=== PATIENT | female | born 1930 | race Caucasian/White ===

== ENCOUNTER 2017-08-03 20:19 | Inpatient (IN) | payer MEDICARE ==
[2017-08-03] MEDS ORDERED: Albuterol Sulfate 2.5 mg/0.5 ml Neb ONE ×2 (20:39→20:41)
[2017-08-03] MEDS ORDERED: Oseltamivir 75 MG CAP PO SCH (21:00)
[2017-08-03] MEDS ORDERED: Ondansetron HCl/PF 4 MG/2 ML Vial IVP PRN (22:21)
[2017-08-03] MEDS ORDERED: Acetaminophen 325 MG TAB PO PRN (22:21)
[2017-08-03] MEDS ORDERED: Ondansetron ODT 4 MG TAB SL PRN (22:21)
[2017-08-03 22:52] VITALS: BMI 31.8
[2017-08-03] MEDS ORDERED: Ipratropium Bromide 2.5 ml Neb NEB SCH (23:00)
[2017-08-04] MEDS: Albuterol Sulfate 2.5 mg/0.5 ml Neb NEB SCH ×2 (00:27→02:35)
[2017-08-04] MEDS ORDERED: Dextrose 5% in Water 1,000 ML IV PRN (03:03)
[2017-08-04] MEDS ORDERED: HYDROcodone/Acetaminophen 5/325 mg Tablet PO PRN (03:03)
[2017-08-04] MEDS ORDERED: Ondansetron ODT 4 MG TAB PO PRN (03:03)
[2017-08-04] MEDS ORDERED: Dextrose 50% Abboject 50 ML SYRINGE SLOW IVP PRN (03:03)
[2017-08-04] MEDS ORDERED: Amlodipine 10 MG TAB PO SCH (03:15)
[2017-08-04] MEDS ORDERED: Carvedilol 6.25 MG TAB PO SCH (03:15)
[2017-08-04 04:32] LABS: #Eosinphils 0.1 thou/uL (0.0-0.7); #Lymphocytes 0.3 thou/uL (1.20-3.40); #Monocytes 0.1 thou/uL (0.11-0.59); #Neutrophils 7.5 thou/uL (1.40-6.50); %Basophils 0.1 % (0.0-1.0); %Eosinophils 0.8 % (0.0-10.0); %Lymphocytes 4.2 % (21.0-51.0); %Monocytes 1.1 % (0.0-10.0); %Neutrophils 93.8 % (42.0-75.0); Hemoglobin 10.1 g/dL (12.0-16.0); Mean Corpuscular HGB CONC 32.8 g/dL (32.0-36.0); Mean Corpuscular Hemoglobin 32.6 pg (27.0-31.0); Mean Corpuscular Volume 99.4 fl (81.0-99.0); Mean Platelet Volume 6.7 fL (7.4-10.4); Platelet Count 193 thou/uL (130-400); RBC Distribution Width 15.8 % (11.5-14.5); Red Blood Cell (RBC) Count 3.11 mill/uL (4.20-5.40)
--- NOTE | 2017-08-04 04:34 | HP ---
DATE OF ADMISSION: 08/04/2017 TIME OF SERVICE: 0230. CHIEF COMPLAINT: Fever, shortness of breath. HISTORY OF PRESENT ILLNESS: Ms. Dean is an 87-year-old female who is a resident of the [facility] known as [facility] in [place]. She has had cough and myalgias and temperat ures up to 102. She was sent to the ER, there for evaluation and was found to have a fever, she was flu A positive, labs were otherwise normal. She was found to be shortness of breath with hypoxemic r espiratory failure and an acute exacerbation of COPD. She has been transferred here for further work up and admission. The patient does have end-stage renal disease on hemodialysis, apparently Sunday, , Sunday , apparently missed hemodialysis today. On arrival here, temperature was abnormal with a fever of 100.6. She has been afebrile since then. In the ER there, she was given albuterol nebs, Tamiflu, and transferred here. Here, she was written for Tamiflu 75 b.i.d., Solu-Medrol, and DuoNebs. We were asked to admit. On arrival, the patient is sleepy, but arousable. She appears to be mild to moderate respiratory dis tress. She denies any chest pain, no nausea, vomiting, no diarrhea. No abdominal pain. No GI bleed ing recently. PAST MEDICAL HISTORY: 1. COPD. 2. Hypertension. 3. End-stage renal disease on hemodialysis Sunday, , and Sunday. She follows with Dr. Jorge english. 4. Diabetes mellitus type 2, on long-term Lantus. 5. Coronary artery disease with MO sometime in mid 2014. 6. Osteoporosis. 7. Renal cancer status post nephrectomy. PAST SURGICAL HISTORY: Include hysterectomy. Right nephrectomy. HOME MEDICATIONS: 1. Renvela 800 mg p.o. t.i.d. 2. Lantus 20 units subcu q.a.m. 3. Biotin 1000 mcg daily. 4. Vitamin D 50,000 units p.o. q. Sunday. 5. Pantoprazole 40 mg daily. 6. Escitalopram 10 mg daily. 7. Plavix 75 mg daily. 8. Faith-Malika 0.8 mg daily. 9. Symbicort 1 puff t.i.d. 10. Cetirizine 10 mg daily. 11. Tramadol 50 mg q.4 p.r.n. 12. Zofran ODT 4 mg sublingual p.r.n. nausea. 13. Lactulose 30 g daily. 14. Tessalon Perles 200 mg p.o. t.i.d. p.r.n. cough. 15. DuoNebs 3 mL q.4 hours p.r.n. shortness of breath. 16. Levofloxacin every other day starting 07/28 to 07/31. 17. Tamiflu given this morning 08/03. The patient was apparently on Coreg and amlodipine at some time in the recent past, but has been bloc ked off OCT and stopped in the last several days. FAMILY HISTORY: Negative for clotting or bleeding disorder. SOCIAL HISTORY: No immune dysfunction. Her surrogate decision maker is Pina hinds [phone]. I discussed with the patient, advance directi ves. She does wish to be a FULL CODE. Ms. Hinds to make a decision if she becomes unable. SOCIAL HISTORY: Negative for habits x3. She lives [facility] near [place]. She anticipates returning there upon completion of her treatment. REVIEW OF SYSTEMS: A 10-point review of systems was performed, negative for all other systems except stated as per HPI. PHYSICAL EXAMINATION: VITAL SIGNS: Temperature on arrival here at the ER 100.6, pulse 65, blood pressure 167/69, respirato ry 20, satting 97% on 2 liters nasal cannula. Current vital signs showed blood pressure to be in the 180s/80s. On arrival to the ER in [place], she was 88% on room air. GENERAL: She is sedated, but arousable. She is in mild respiratory distress. She is getting nebuli zer treatment at present. HEENT: Normocephalic, atraumatic. Pupils are equal, reactive bilaterally, she has bilateral arcus s enilis. Mucous membranes are dry. She has no visible lesions. No thrush. NECK: Supple, without lymphadenopathy, JVD, or thyromegaly. She has normal carotid upstrokes. Good range of motion. LUNGS: Have diffuse inspiratory and expiratory wheezes bilaterally. She has no crackles. No rhonch i. She has adequate air movement and symmetrical chest excursion. CARDIOVASCULAR: She has normal cardiac. Normal S1, S2. I cannot appreciate murmurs over breath faraz nds and nebulizer sounds. ABDOMEN: Soft, is nontender, nondistended. She has a ventral hernia in place. It is easily reducib le. She has no rebound, rigidity, or guarding. There are normoactive bowel sounds present in all 4 quadrants. EXTREMITIES: No cyanosis, no clubbing. She has got trace pedal edema. She has 1+ dorsalis pedis an d posterior tibial pulses bilaterally. SKIN: Warm, moist, and well perfused. She has no rash, no lesions. Capillary refill is normal. MUSCULOSKELETAL: Normal to inspection. There are no inflamed joints. No palpable effusions. NEUROLOGIC: She is sedated, but arousable. She is talking much. She is in mild to moderate respira tory distress. She has no focal neurologic deficits. Moving all 4 extremities. Strength is 4-5/5 i n all 4 extremities. LABORATORY DATA: BMP shows sodium 135, potassium 5.1, chloride 102, bicarb 21, BUN 28, creatinine 4. 2, calcium 9.7, glucose 139. CBC showed a white count of 9.4. She has 87% granulocytes, hemoglobin 10.7, hematocrit 31.6, platelets 162,000. Chest x-ray showed no acute cardiopulmonary disease. ASSESSMENT AND PLAN: 1. Acute exacerbation of chronic obstructive pulmonary disease. I think she got Solu-Medrol 125 at the ER. We will continue 40 mg IV q.6 hours for a day or two until she improves, then transition her to oral steroids. We will schedule DuoNebs q.4 hours and q.2 hours albuterol as needed. 2. Acute hypoxic respiratory failure. The patient currently requiring oxygen. Wean as tolerated. Obviously with COPD we do not want oxygen sats to stay too high, so will wean to keep her oxygen sats greater than 90%. 3. Influenza A. Patient was given a 30 mg dose as appropriate for her renal function. She is to ge t 2 more doses after every other dialysis. She was ordered 75 b.i.d., I confirmed with the nurses', it was not given and that order has been stopped abruptly. Dosing has been confirmed for her current renal status. 4. End-stage renal disease on hemodialysis. Dr. Covington has been consulted. The patient needs dialysis that she missed today. 5. Hypertension. Currently uncontrolled. It looks like she was on amlodipine 10 mg daily, and Core g 6.25 b.i.d. We will give her dose of those now, p.r.n. hydralazine has been ordered intravenously. We will resume her regular dosing and monitor her blood pressure. 6. Diabetes mellitus type 2, she is on Lantus daily which will continue. Diabetic renal diet has be en ordered. q.i.d. a.c. and at bedtime Accu-Cheks. We will check hemoglobin A1c in the morning. Sl iding scale insulin with moderate scale has been instituted. I expect her to run high. Currently, s he is on IV steroids. We will try to correct appropriately. 8. History of coronary artery disease, status post MO a year and a half ago. Continue her Plavix. 9. Renal cell carcinoma, apparently in remission.
[2017-08-04 04:57] LABS: Albumin 3.7 g/dL (3.4-4.8); Anion Gap 16 mmol/L (10-20); BUN (Urea Nitrogen) 35 mg/dL (9.8-20.1); BUN/Creatinine Ratio 6.85; Calc. Creatinine Clearance 11 mL/min (70-130); Calcium 9.7 mg/dL (7.8-10.44); Carbon Dioxide 22 mmol/L (23-31); Chloride 101 mmol/L (98-107); Estimated GFR-MDRD 8; Glucose 213 mg/dL (83-110); Phosphorus 4.8 mg/dL (2.3-4.7); Potassium 4.9 mmol/L (3.5-5.1); Sodium 134 mmol/L (136-145)
[2017-08-04] MEDS: HumaLOG 300 UNITS/3 ML VIAL SC PRN ×2 (05:23→11:44)
[2017-08-04] MEDS ORDERED: Non-Formulary Item 1 EACH (Insulin Glargine,Hum.Rec.Anlog 20 UNIT) SQ SCH (09:00)
[2017-08-04] MEDS ORDERED: Ergocalciferol 1.25 MG(50,000 UNITS) CAP PO SCH ×2 (09:00)
[2017-08-04] MEDS: Sevelamer Carbonate 800 MG TAB PO SCH ×3 (09:04→17:32)
[2017-08-04] MEDS: Folic Acid/Vit B Comp W-C PO SCH (09:04)
[2017-08-04] MEDS: Escitalopram Oxalate 10 mg Tablet PO SCH (09:04)
[2017-08-04] MEDS: Clopidogrel Bisulfate 75 MG TAB PO SCH (09:04)
[2017-08-04] MEDS: Insulin Detemir 100 UNITS/ML 20 UNITS in Pre-Filled Syringe 1 EACH SC SCH (09:05)
--- NOTE | 2017-08-04 11:40 | CON ---
DATE OF CONSULTATION: 08/04/2017 RENAL MEDICINE HISTORY OF PRESENT ILLNESS: Ms. Dean is an 87-year-old white female with ESRD - maintenance hemodial ysis and was admitted for fever and shortness of breath. She was found to positive flu A. Shortness of breath was said to be persistent, hence the patient was admitted for further management. Presump tive diagnosis is exacerbation of her COPD. She also missed her Sunday dialysis session. For this r sendy, we are being consulted for her maintenance hemodialysis. I will schedule this patient for ramos lysis today. This morning, she is feeling better and a little less short of breath. REVIEW OF SYSTEMS: Positive for fever. Positive for diarrhea. Positive for shortness of breath. P ositive for nausea, no abdominal pain, no headache, no diplopia, no syncopal episode. Appetite is de creased. Positive for joint pains. No hematochezia, no melena, no hematemesis, no diplopia. Positi ve for sore throat. MEDICATIONS: Tylenol 650 mg p.o. q.4 p.r.n., Ray 5/325 q.6, Plavix 75 mg daily, Drisdol 50,000 mg p.o. every 7 days, Lexapro 10 mg daily, hydralazine 10 mg IV q.4 as needed, insulin detemir 20 units subcu q.a.m., Humalog sliding scale, Solu-Medrol 40 mg IV q.6, Tamiflu 1 tab Sunday, Sunday, y, Protonix 40 mg daily, Renvela 800 mg p.o. t.i.d. PAST MEDICAL HISTORY: 1. ESRD, currently on maintenance hemodialysis; Sunday, Sunday, and Sunday. 2. Type 2 diabetes mellitus. 3. Diabetic nephropathy, hyperlipidemia, coronary artery disease, renal cancer - in remission, depre ssion. PAST SURGICAL HISTORY: 1. Status post right nephrectomy for renal cancer 2. Status post AV fistula placement. 3. Status post cuffed hemodialysis catheter placement. 4. Status post hysterectomy. 5. Status post cardiac catheterization. SOCIAL HISTORY: Patient currently in a fpc in [place], 4 children. 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 Currently no history of smoking, no alcohol, no IV drug abuse. Status post blood transfusion. Education, nursing school. Sedentary lifestyle. ALLERGIES: DEMEROL. TRAUMA: None. IMMUNIZATIONS: Up to date. HOSPITALIZATIONS: Please see past medical history. FAMILY HISTORY: No family history of ESRD. PHYSICAL EXAMINATION: VITAL SIGNS: Blood pressure is 176/85, heart rate 73, respiratory rate 18, temperature 98.1, pulse o x 94%. GENERAL: Awake, alert, supine, lethargic, not in overt distress. SKIN: Adequate turgor. HEENT: Pinkish conjunctivae, anicteric sclerae. NECK: No neck mass, no carotid bruits, no JVD. CHEST: No deformities. LUNGS: Decreased breath sounds. No wheezing. HEART: Normal sinus rhythm. No murmur, no gallops or rubs. ABDOMEN: Globular, soft, nontender. EXTREMITIES: Trace edema. NEUROLOGIC: Awake, oriented to 3 spheres. Moving all extremities. No tremors, no asterixis, no flaco faby. LABORATORY DATA: Laboratories of 08/04/2017; white count 8, hemoglobin 10.1, sodium 134, potassium 4 .9, chloride 101, carbon dioxide 22, BUN 35, creatinine 5.11, glucose is 213, phosphorus 4.8, and alb umin 3.7. ASSESSMENT AND PLAN: 1. End-stage renal disease, stable. We will continue current treatment with hemodialysis. Since th e patient missed her dialysis yesterday, we will do a 3-hour hemodialysis with this patient. Fluid r emoval only as tolerated by the patient. 2. Fever - secondary to influenza A - patient currently on Tamiflu. 3. Shortness of breath - multifactorial. The patient has underlying chronic obstructive pulmonary d isease and is being treated for this. In addition, we will consider dialyzing patient today with flu id removal. Review of the last Kt/V at the dialysis unit suggests she is adequately dialyzed with the current ramos lysis regimen.
--- NOTE | 2017-08-04 12:06 | PDOC.EVN ---
Event Note - Event Note Event Note: Chart reviewed. Pt seen. Still has cough, feels unwell. Will follow.
[2017-08-04] MEDS: Acetaminophen 325 MG TAB PO PRN ×3 (12:17→21:45)
[2017-08-04] MEDS: hydrALAZINE 20 MG/ML VIAL SLOW IVP PRN ×2 (12:18→20:34)
[2017-08-04 12:41] LABS: HBSAg Index 0.19 S/CO (0-0.99); Hep B Surf Ag Non-Reactive S/CO (NonReactive)
[2017-08-04] MEDS ORDERED: Heparin 10,000 UNITS/ 10 ML VIAL ONE (20:11)
[2017-08-04] MEDS: Guaifenesin DM 100-10/5 ML UDCUP PO PRN (23:26)
[2017-08-05] MEDS: hydrALAZINE 20 MG/ML VIAL SLOW IVP PRN ×4 (00:42→21:55)
[2017-08-05 04:55] LABS: #Eosinphils 0.1 thou/uL (0.0-0.7); #Lymphocytes 0.7 thou/uL (1.20-3.40); #Monocytes 0.6 thou/uL (0.11-0.59); #Neutrophils 11.4 thou/uL (1.40-6.50); %Eosinophils 0.6 % (0.0-10.0); %Lymphocytes 5.3 % (21.0-51.0); %Monocytes 4.4 % (0.0-10.0); %Neutrophils 89.7 % (42.0-75.0); Hemoglobin 11.7 g/dL (12.0-16.0); Mean Corpuscular HGB CONC 32.3 g/dL (32.0-36.0); Mean Corpuscular Hemoglobin 32.1 pg (27.0-31.0); Mean Corpuscular Volume 99.3 fl (81.0-99.0); Mean Platelet Volume 6.5 fL (7.4-10.4); Platelet Count 253 thou/uL (130-400); RBC Distribution Width 16.4 % (11.5-14.5); Red Blood Cell (RBC) Count 3.65 mill/uL (4.20-5.40); White Blood Cell (WBC) Count 12.8 thou/uL (4.8-10.8)
[2017-08-05 05:12] LABS: Anion Gap 17 mmol/L (10-20); BUN (Urea Nitrogen) 29 mg/dL (9.8-20.1); Calc. Creatinine Clearance 18 mL/min (70-130); Carbon Dioxide 28 mmol/L (23-31); Chloride 93 mmol/L (98-107); Estimated GFR-MDRD 15; Glucose 120 mg/dL (83-110); Potassium 4.1 mmol/L (3.5-5.1); Sodium 134 mmol/L (136-145)
[2017-08-05] MEDS: Acetaminophen 325 MG TAB PO PRN ×2 (05:37→22:19)
[2017-08-05] MEDS: Escitalopram Oxalate 10 mg Tablet PO SCH (08:24)
[2017-08-05] MEDS: Clopidogrel Bisulfate 75 MG TAB PO SCH (08:24)
[2017-08-05] MEDS: Sevelamer Carbonate 800 MG TAB PO SCH ×3 (08:24→17:42)
[2017-08-05] MEDS: Folic Acid/Vit B Comp W-C PO SCH (08:24)
[2017-08-05] MEDS: Oseltamivir 6 MG/ML ORAL SUSP PO SCH (09:26)
[2017-08-05] MEDS: Insulin Detemir 100 UNITS/ML 20 UNITS in Pre-Filled Syringe 1 EACH SC SCH (09:38)
[2017-08-05] MEDS: HumaLOG 300 UNITS/3 ML VIAL SC PRN (11:51)
--- NOTE | 2017-08-05 13:02 | PDOC.PN ---
- Subjective Encounter Start Date: 08/05/17 Encounter Start Time: 07:40 Pt seen for followup re: influenza A infection. Still feels weak, coughing. - Objective Resuscitation Status: Resuscitation Status FULL:Full Resuscitation MAR Reviewed: Yes Vital Signs & Weight: Vital Signs (12 hours) Temp Pulse Resp BP BP BP Pulse Ox 08/05/17 12:03 97.9 F 83 18 183/81 H 96 08/05/17 08:33 90 180/83 H 08/05/17 08:23 90 180/83 H 08/05/17 08:12 98.4 F 82 18 160/67 H 98 08/05/17 05:46 98.0 F 80 20 164/72 H 96 08/05/17 05:11 92 L Weight Weight 185 lb 11.2 oz I&O: 08/04/17 08/05/17 08/06/17 06:59 06:59 06:59 Intake Total 210 600 Output Total 400 Balance -190 600 Result Diagrams: 08/05/17 04:15 08/05/17 04:15 Additional Labs: Accuchecks 08/05/17 08/05/17 08/04/17 11:01 06:02 20:59 POC Glucose 311 H 156 H 140 H EKG Reviewed by me: Yes (Tele: NSR) Phys Exam - Physical Examination Constitutional: NAD HEENT: PERRLA, moist MMs, sclera anicteric, oral pharynx no lesions Neck: no nodes, no JVD, supple, full ROM Respiratory: no rales, no rhonchi, wheezing present Cardiovascular: RRR, no rub Gastrointestinal: soft, non-tender, no distention, positive bowel sounds Neurological: moves all 4 limbs Psychiatric: normal affect, A&O x 3 Skin: no rash, normal turgor, cap refill <2 seconds Dx/Plan (1) Influenza A Code(s): J10.1 - FLU DUE TO OTH IDENT INFLUENZA VIRUS W OTH RESP MANIFEST Status: Acute (2) COPD exacerbation Code(s): J44.1 - CHRONIC OBSTRUCTIVE PULMONARY DISEASE W (ACUTE) EXACERBATION Status: Acute (3) CAD (coronary artery disease) Code(s): I25.10 - ATHSCL HEART DISEASE OF [place] CORONARY ARTERY W/O ANG PCTRS Status: Chronic Qualifiers: Coronary Disease-Associated Artery/Lesion type: [place] artery [place] vs. transplanted heart: [place] heart Associated angina: without angina Qualified Code(s): I25.10 - Atherosclerotic heart disease of [place] coronary artery without angina pectoris (4) DM type 2 (diabetes mellitus, type 2) Status: Chronic Qualifiers: Diabetes mellitus complication status: with hyperglycemia Diabetes mellitus group home insulin use: with group home use Qualified Code(s): E11.65 - Type 2 diabetes mellitus with hyperglycemia; Z79.4 - jail (current) use of insulin (5) ESRD (end stage renal disease) on dialysis Code(s): N18.6 - END STAGE RENAL DISEASE; Z99.2 - DEPENDENCE ON RENAL DIALYSIS Status: Chronic (6) Hypertension Code(s): I10 - ESSENTIAL (PRIMARY) HYPERTENSION Status: Chronic Qualifiers: Hypertension type: essential hypertension Qualified Code(s): I10 - Essential (primary) hypertension (7) Osteoporosis Code(s): M81.0 - AGE-RELATED OSTEOPOROSIS W/O CURRENT PATHOLOGICAL FRACTURE Status: Chronic - Plan * . Continue oxygen, steroids, bronchodilators. Continue Tamiflu. Continue accuchecks, insulin sliding scale. Monitor vital signs, titrate antihypertensives as needed. Dialysis per nephrology service. Review of Systems - Review of Systems Constitutional: weakness. negative: fever, chills, sweats, malaise Respiratory: Cough, SOB with Excertion, Sputum. negative: Dry, Shortness of Breath, Hemoptysis, Pleuritic Pain, Wheezing Cardiovascular: negative: chest pain, palpitations, orthopnea, paroxysmal nocturnal dyspnea, edema, light headedness Gastrointestinal: negative: Nausea, Vomiting, Abdominal Pain, Diarrhea, Constipation, Melena, Hematochezia Genitourinary: negative: Dysuria, Frequency, Incontinence, Hematuria, Retention - Medications/Allergies Allergies/Adverse Reactions: Allergies Allergy/AdvReac Type Severity Reaction Status Date / Time meperidine HCl [From Demerol] Allergy Verified 02/04/16 00:20 Medications: Current Medications Acetaminophen (Tylenol) 650 mg PO Q4H PRN PRN Reason: Headache/Fever or Pain Last Admin: 08/05/17 05:37 Dose: 650 mg Hydrocodone Bitart/Acetaminophen ([place] 5/325) 1 tab PO Q4H PRN PRN Reason: Moderate Pain (4-6) Clopidogrel Bisulfate (Plavix) 75 mg PO DAILY MOISE Last Admin: 08/05/17 08:24 Dose: 75 mg Dextrose/Water (Dextrose 50%) 25 gm SLOW IVP PRN PRN PRN Reason: Hypoglycemia Ergocalciferol (Drisdol) 1.25 mg PO Q7D [facility] Last Admin: 08/04/17 11:44 Dose: 1.25 mg Escitalopram Oxalate (Lexapro) 10 mg PO DAILY [facility] Last Admin: 08/05/17 08:24 Dose: 10 mg Glucagon (Glucagon) 1 mg IM PRN PRN PRN Reason: Hypoglycemia Guaifenesin/Dextromethorphan (Robitussin Dm) 15 ml PO Q4H PRN PRN Reason: Cough Last Admin: 08/04/17 23:26 Dose: 15 ml Hydralazine HCl (Apresoline) 10 mg SLOW IVP Q3H PRN PRN Reason: SBP Greater Than 170 Last Admin: 08/05/17 08:33 Dose: 10 mg Dextrose/Water (D5w) 1,000 mls @ 0 mls/hr IV .Q0M PRN; As Directed PRN Reason: Hypoglycemia Insulin Detemir 20 units/ (Miscellaneous Medication) 0.2 mls @ 0 mls/hr SC QAM [facility] Last Admin: 08/05/17 09:38 Dose: 0.2 mls Insulin Human Lispro (Humalog) 0 units SC .MODERATE SLIDING SC PRN PRN Reason: Moderate Correctional Scale Last Admin: 08/05/17 11:51 Dose: 8 unit Methylprednisolone Sodium Succinate (Solu-Medrol) 40 mg IVP Q6HR [facility] Last Admin: 08/05/17 11:56 Dose: 40 mg Ondansetron HCl (Zofran Odt) 4 mg PO Q6H PRN PRN Reason: Nausea/Vomiting Last Admin: 08/04/17 21:27 Dose: 4 mg Oseltamivir Phosphate (Tamiflu) 30 mg PO MoWeFr@0900 [facility] Stop: 08/10/17 09:01 Last Admin: 08/05/17 09:26 Dose: 30 mg Pantoprazole Sodium (Protonix) 40 mg PO DAILY [facility] Last Admin: 08/05/17 08:24 Dose: 40 mg Sevelamer Carbonate (Renvela) 800 mg PO TID-[facility] Last Admin: 08/05/17 11:56 Dose: 800 mg Vitamin B Complex/Vit C/Folic Acid (Nephro-Malika Tablet) 1 tab PO DAILY MOISE Last Admin: 08/05/17 08:24 Dose: 1 tab
[2017-08-05] MEDS: Guaifenesin DM 100-10/5 ML UDCUP PO PRN (14:26)
[2017-08-05] MEDS: Benzonatate 100 MG CAP PO PRN ×2 (17:43→22:19)
[2017-08-05] MEDS ORDERED: Carvedilol 25 MG TAB PO SCH (20:30)
[2017-08-05] MEDS ORDERED: Amlodipine 10 MG TAB PO SCH (20:30)
[2017-08-06] MEDS: guaiFENesin/Codeine Phosphate 200 mg/20 mg 10 ml UD Cup PO PRN ×3 (00:12→21:18)
[2017-08-06] MEDS: HumaLOG 300 UNITS/3 ML VIAL SC PRN ×2 (06:21→17:33)
[2017-08-06] MEDS: Mometasone/Formoterol 120 PUFF INHALER INH SCH ×2 (06:57→19:16)
[2017-08-06] MEDS ORDERED: (Biotin [Biotin] 1 MG) PO SCH (09:00)
[2017-08-06] MEDS: Sevelamer Carbonate 800 MG TAB PO SCH ×3 (09:19→17:33)
[2017-08-06] MEDS: Folic Acid/Vit B Comp W-C PO SCH (09:20)
[2017-08-06] MEDS: Carvedilol 25 MG TAB PO SCH ×2 (09:20→17:33)
[2017-08-06] MEDS: Escitalopram Oxalate 10 mg Tablet PO SCH (09:20)
[2017-08-06] MEDS: Clopidogrel Bisulfate 75 MG TAB PO SCH (09:20)
[2017-08-06] MEDS: Insulin Detemir 100 UNITS/ML 20 UNITS in Pre-Filled Syringe 1 EACH SC SCH (09:21)
[2017-08-06] MEDS: Benzonatate 100 MG CAP PO PRN ×2 (09:28→23:56)
--- NOTE | 2017-08-06 09:50 | PRG ---
DATE OF SERVICE: 08/06/2017 RENAL MEDICINE SUBJECTIVE: Ms. Dean is an 87-year-old white female with ESRD and currently on maintenance hemodialysis. We are currently dialyzing the patient. We are dialyzing patient bedside due her underlying flu. She was initially admitted for her respiratory symptoms. I am attempting 2 liter fluid removal will her. No other complaints today, no chest pain, still with an occasional productive cough. Denies any fever. PHYSICAL EXAMINATION: VITAL SIGNS: Blood pressure 166/74, heart rate 65, respiratory rate 16, temperature 97.7, pulse ox ranging from 90%-94%. GENERAL: Awake, supine, comfortable, not in overt distress. SKIN: Adequate turgor. HEENT: She has pinkish conjunctivae, anicteric sclerae. NECK: No neck mass, no carotid bruits, no JVD. CHEST: No deformities. LUNGS: Harsh breath sounds with occasional wheezing. HEART: Normal sinus rhythm. No murmur, no gallops, no rubs. ABDOMEN: Globular, soft, nontender, no masses. EXTREMITIES: No edema, no deformities. MEDICATIONS: Medications of 08/06/2017 was reviewed. LABORATORY DATA: Laboratories of 08/05/2017, white count 12.8, hemoglobin 11.7 , sodium 134, potassium 4.1, chloride 93, carbon dioxide 28, BUN 29, and creatinine 2.97. On 08/06/2017, glucose 166. ASSESSMENT AND PLAN: 1. End-stage renal disease, stable. Continue current 3 times a week hemodialysis. We will attempt a 2 liter fluid removal with this patient as tolerated. No changes will be made with the current dialysis regimen. 2. Upper respiratory tract infection/influenzae A - supportive care, on respiratory precautions. 3. Anemia - no indication for any Epogen. 4. Consider discharge in a.m. if the patient is clinically improved. 5. Wheezing/upper respiratory tract infection - DuoNeb q.i.d. and p.r.n. MTDD
--- NOTE | 2017-08-06 12:51 | PDOC.PN ---
- Subjective Encounter Start Date: 08/06/17 Encounter Start Time: 07:40 Pt seen for followup re: COPD exacerbation. Feels slightly better. Cough+. No nausea. No diarrhea. - Objective Resuscitation Status: Resuscitation Status FULL:Full Resuscitation MAR Reviewed: Yes Vital Signs & Weight: Vital Signs (12 hours) Temp Pulse Resp BP BP Pulse Ox 08/06/17 11:40 80 12 08/06/17 11:20 97.5 F L 61 20 175/73 H 96 08/06/17 09:20 97.7 F 65 16 08/06/17 08:10 97.7 F 65 16 166/74 H 90 L 08/06/17 06:57 65 12 08/06/17 04:20 93 L 08/06/17 04:13 98.0 F 68 20 161/70 H 88 L Weight Weight 185 lb 11.2 oz I&O: 08/05/17 08/06/17 08/07/17 06:59 06:59 06:59 Intake Total 210 1230 Output Total 400 Balance -190 1230 Result Diagrams: 08/05/17 04:15 08/05/17 04:15 Additional Labs: Accuchecks 08/06/17 08/06/17 08/05/17 11:32 06:20 22:25 POC Glucose 158 H 166 H 154 H 08/05/17 16:53 POC Glucose 135 H EKG Reviewed by me: Yes (Tele: NSR) Phys Exam - Physical Examination Constitutional: NAD HEENT: moist MMs Neck: supple Respiratory: clear to auscultation bilateral Cardiovascular: RRR Gastrointestinal: soft Musculoskeletal: pulses present Neurological: moves all 4 limbs Psychiatric: normal affect Skin: no rash Dx/Plan (1) COPD exacerbation Code(s): J44.1 - CHRONIC OBSTRUCTIVE PULMONARY DISEASE W (ACUTE) EXACERBATION Status: Acute (2) Influenza A Code(s): J10.1 - FLU DUE TO OTH IDENT INFLUENZA VIRUS W OTH RESP MANIFEST Status: Acute (3) CAD (coronary artery disease) Code(s): I25.10 - ATHSCL HEART DISEASE OF [place] CORONARY ARTERY W/O ANG PCTRS Status: Chronic Qualifiers: Coronary Disease-Associated Artery/Lesion type: [place] artery [place] vs. transplanted heart: [place] heart Associated angina: without angina Qualified Code(s): I25.10 - Atherosclerotic heart disease of [place] coronary artery without angina pectoris (4) DM type 2 (diabetes mellitus, type 2) Status: Chronic Qualifiers: Diabetes mellitus complication status: with hyperglycemia Diabetes mellitus petroleum terminal plant operator insulin use: with petroleum terminal plant operator use Qualified Code(s): E11.65 - Type 2 diabetes mellitus with hyperglycemia; Z79.4 - petroleum terminal plant operator (current) use of insulin (5) ESRD (end stage renal disease) on dialysis Code(s): N18.6 - END STAGE RENAL DISEASE; Z99.2 - DEPENDENCE ON RENAL DIALYSIS Status: Chronic (6) Hypertension Code(s): I10 - ESSENTIAL (PRIMARY) HYPERTENSION Status: Chronic Qualifiers: Hypertension type: essential hypertension Qualified Code(s): I10 - Essential (primary) hypertension (7) Osteoporosis Code(s): M81.0 - AGE-RELATED OSTEOPOROSIS W/O CURRENT PATHOLOGICAL FRACTURE Status: Chronic - Plan * . Continue oxygen, steroids, bronchodilators. Tamiflu as ordered (on dialysis days). Likely home 24-48 hrs. Pt being dialyzed today. Review of Systems - Review of Systems Respiratory: Cough, Dry. negative: Shortness of Breath, Hemoptysis, SOB with Excertion, Pleuritic Pain, Sputum, Wheezing Gastrointestinal: negative: Nausea, Vomiting, Abdominal Pain, Diarrhea, Constipation, Melena, Hematochezia - Medications/Allergies Allergies/Adverse Reactions: Allergies Allergy/AdvReac Type Severity Reaction Status Date / Time meperidine HCl [From Demerol] Allergy Verified 02/04/16 00:20 Medications: Current Medications Acetaminophen (Tylenol) 650 mg PO Q4H PRN PRN Reason: Headache/Fever or Pain Last Admin: 08/05/17 22:19 Dose: 650 mg Hydrocodone Bitart/Acetaminophen ([place] 5/325) 1 tab PO Q4H PRN PRN Reason: Moderate Pain (4-6) Albuterol/Ipratropium (Duoneb) 3 ml NEB QID-RT [facility] Last Admin: 08/06/17 11:40 Dose: 3 ml Albuterol/Ipratropium (Duoneb) 3 ml NEB PRN PRN PRN Reason: Dyspnea/Wheezing/SOB Benzonatate (Tessalon) 100 mg PO TIDPRN PRN PRN Reason: Cough Last Admin: 08/06/17 09:28 Dose: 100 mg Carvedilol (Coreg) 12.5 mg PO BID-WM [facility] Last Admin: 08/06/17 09:20 Dose: 12.5 mg Clopidogrel Bisulfate (Plavix) 75 mg PO DAILY [facility] Last Admin: 08/06/17 09:20 Dose: 75 mg Dextrose/Water (Dextrose 50%) 25 gm SLOW IVP PRN PRN PRN Reason: Hypoglycemia Ergocalciferol (Drisdol) 1.25 mg PO Q7D [facility] Last Admin: 08/04/17 11:44 Dose: 1.25 mg Escitalopram Oxalate (Lexapro) 10 mg PO DAILY [facility] Last Admin: 08/06/17 09:20 Dose: 10 mg Glucagon (Glucagon) 1 mg IM PRN PRN PRN Reason: Hypoglycemia Guaifenesin/Codeine Phosphate (Robitussin Ac) 10 ml PO Q4HR PRN PRN Reason: Cough Last Admin: 08/06/17 12:12 Dose: 10 ml Guaifenesin/Dextromethorphan (Robitussin Dm) 15 ml PO Q4H PRN PRN Reason: Cough Last Admin: 08/05/17 14:26 Dose: 15 ml Hydralazine HCl (Apresoline) 10 mg SLOW IVP Q3H PRN PRN Reason: SBP Greater Than 170 Last Admin: 08/05/17 21:55 Dose: 10 mg Dextrose/Water (D5w) 1,000 mls @ 0 mls/hr IV .Q0M PRN; As Directed PRN Reason: Hypoglycemia Insulin Detemir 20 units/ (Miscellaneous Medication) 0.2 mls @ 0 mls/hr SC QAM [facility] Last Admin: 08/06/17 09:21 Dose: 0.2 mls Insulin Human Lispro (Humalog) 0 units SC .MODERATE SLIDING SC PRN PRN Reason: Moderate Correctional Scale Last Admin: 08/06/17 06:21 Dose: 2 unit Methylprednisolone Sodium Succinate (Solu-Medrol) 40 mg IVP Q6HR [facility] Last Admin: 08/06/17 12:06 Dose: 40 mg Mometasone Furoate/Formoterol Fumar (Dulera 200 Mcg/5 Mcg Inhaler) 1 puff INH BID-RT [facility] Last Admin: 08/06/17 06:57 Dose: 1 puff Ondansetron HCl (Zofran Odt) 4 mg PO Q6H PRN PRN Reason: Nausea/Vomiting Last Admin: 08/04/17 21:27 Dose: 4 mg Oseltamivir Phosphate (Tamiflu) 30 mg PO MoWeFr@0900 [facility] Stop: 08/10/17 09:01 Last Admin: 08/05/17 09:26 Dose: 30 mg Pantoprazole Sodium (Protonix) 40 mg PO DAILY [facility] Last Admin: 08/06/17 09:20 Dose: 40 mg Sevelamer Carbonate (Renvela) 800 mg PO TID-[facility] Last Admin: 08/06/17 12:06 Dose: 800 mg Vitamin B Complex/Vit C/Folic Acid (Nephro-Malika Tablet) 1 tab PO DAILY [facility] Last Admin: 08/06/17 09:20 Dose: 1 tab
[2017-08-06] MEDS: Oseltamivir 6 MG/ML ORAL SUSP PO SCH (15:14)
[2017-08-06] MEDS: hydrALAZINE 20 MG/ML VIAL SLOW IVP PRN ×2 (20:10→23:56)
[2017-08-07] MEDS: HumaLOG 300 UNITS/3 ML VIAL SC PRN ×2 (06:37→13:38)
[2017-08-07] MEDS: Mometasone/Formoterol 120 PUFF INHALER INH SCH ×2 (06:38→19:26)
[2017-08-07] MEDS: Carvedilol 25 MG TAB PO SCH ×2 (08:50→18:33)
[2017-08-07] MEDS: Escitalopram Oxalate 10 mg Tablet PO SCH (08:51)
[2017-08-07] MEDS: Clopidogrel Bisulfate 75 MG TAB PO SCH (08:51)
[2017-08-07] MEDS: Sevelamer Carbonate 800 MG TAB PO SCH ×3 (08:51→18:33)
[2017-08-07] MEDS: Folic Acid/Vit B Comp W-C PO SCH (08:51)
[2017-08-07] MEDS: Insulin Detemir 100 UNITS/ML 20 UNITS in Pre-Filled Syringe 1 EACH SC SCH (08:52)
[2017-08-07 10:02] LABS: #Eosinphils 0.1 thou/uL (0.0-0.7); #Lymphocytes 0.7 thou/uL (1.20-3.40); #Monocytes 0.5 thou/uL (0.11-0.59); #Neutrophils 8.8 thou/uL (1.40-6.50); %Basophils 0.2 % (0.0-1.0); %Eosinophils 0.6 % (0.0-10.0); %Lymphocytes 6.8 % (21.0-51.0); %Monocytes 4.6 % (0.0-10.0); %Neutrophils 87.9 % (42.0-75.0); Hemoglobin 13.3 g/dL (12.0-16.0); Mean Corpuscular HGB CONC 33.3 g/dL (32.0-36.0); Mean Corpuscular Hemoglobin 32.8 pg (27.0-31.0); Mean Corpuscular Volume 98.5 fl (81.0-99.0); Mean Platelet Volume 6.5 fL (7.4-10.4); Platelet Count 279 thou/uL (130-400); RBC Distribution Width 16.2 % (11.5-14.5); Red Blood Cell (RBC) Count 4.07 mill/uL (4.20-5.40)
[2017-08-07 10:14] LABS: Anion Gap 16 mmol/L (10-20); BUN (Urea Nitrogen) 52 mg/dL (9.8-20.1); Calc. Creatinine Clearance 14 mL/min (70-130); Calcium 9.6 mg/dL (7.8-10.44); Carbon Dioxide 26 mmol/L (23-31); Chloride 95 mmol/L (98-107); Estimated GFR-MDRD 11; Glucose 303 mg/dL (83-110); Potassium 4.6 mmol/L (3.5-5.1); Sodium 132 mmol/L (136-145)
--- NOTE | 2017-08-07 12:35 | DIS ---
DATE OF ADMISSION: 08/04/2017 DATE OF DISCHARGE: 08/07/2017 PRIMARY CARE PROVIDER: Richmond Delatorre M.D. DISCHARGE DIAGNOSES: 1. Chronic obstructive pulmonary disease exacerbation. 2. Influenza A infection. CONDITION OF PATIENT ON THE DAY OF DISCHARGE: Stable. I assessed Ms. Dean on the day of discharge. She reports feeling better. Shortness of breath is better. Cough is better. Vital signs are stabl e. S1 and S2 are heard, regular. Lungs are clear to auscultation bilaterally. DISCHARGE MEDICATIONS: Amlodipine 10 mg daily, Tessalon 100 mg 3 times a day as needed, Biotin 1 mg daily, Symbicort 160/4.5 one puff 3 times a day, Coreg 12.5 mg 2 times a day, vitamin D3 50,000 units every week, Plavix 75 mg daily, escitalopram 10 mg daily, Faith-Malika 0.8 mg daily, Robitussin 10 mL e very 4 hours as needed, Lantus insulin 20 units in the morning, DuoNebs 4 times a day as needed, Medr ol Dosepak, Tamiflu 30 mg to be taken after dialysis on Sunday, that will be her last dose, Protonix 40 mg daily, Renvela 800 mg 3 times a day, tramadol p.r.n. CONSULTATIONS DURING THIS HOSPITALIZATION: Nephrology, Dr. Covington for maintenance hemodialysis. HOSPITAL COURSE: Ms. Dean is a pleasant 87-year-old lady who was admitted to [facility] on 08/04[facility]2017 for chronic obstructive pulmonary disease exacerbation and influenza A infec tion. She was treated with oxygen, steroids, and bronchodilators. She was also seen by Nephrology Tony taylor and received maintenance hemodialysis. She improved clinically, and is being discharged home in a stable condition. On the day of discharge, she has a white count of 10,000, hemoglobin 13.3, platelet count 279,000. S odium 132, potassium 4.6, blood urea nitrogen 52, and creatinine 3.75. Many thanks you for allowing me to participate in your patient's care. Please feel free to contact m mariam with any questions or concerns. DISCHARGE DESTINATION: Home. TOTAL AMOUNT OF TIME SPENT COORDINATING THIS DISCHARGE: 32 minutes.
[2017-08-07] MEDS: hydrALAZINE 20 MG/ML VIAL SLOW IVP PRN ×2 (12:47→23:18)
[2017-08-07] MEDS ORDERED: Amlodipine 5 MG TAB PO SCH (15:45)
[2017-08-07] MEDS ORDERED: cloNIDine 0.1 MG TAB PO PRN (17:31)
--- NOTE | 2017-08-07 17:33 | PDOC.PN ---
- Subjective Encounter Start Date: 08/07/17 Encounter Start Time: 17:32 Pt seen for followup re: hypertensive urgency. Denies chest pain, shortness of breath, fevers or chills. - Objective Resuscitation Status: Resuscitation Status FULL:Full Resuscitation Vital Signs & Weight: Vital Signs (12 hours) Temp Pulse Resp BP BP Pulse Ox 08/07/17 16:50 97.7 F 65 20 191/81 H 92 L 08/07/17 16:28 207/91 H 08/07/17 15:00 191/82 H 08/07/17 12:47 63 08/07/17 12:43 193/84 H 08/07/17 12:05 97.9 F 63 16 193/84 H 96 08/07/17 11:07 63 16 08/07/17 08:00 98.0 F 77 20 08/07/17 07:36 98.0 F 77 20 143/67 H 95 08/07/17 06:39 75 16 93 L Weight Weight 177 lb 14.4 oz I&O: 08/06/17 08/07/17 08/08/17 06:59 06:59 06:59 Intake Total 1230 Output Total 1999 Balance 1230 -1999 Result Diagrams: 08/07/17 09:53 08/07/17 09:53 Additional Labs: Accuchecks 08/07/17 08/07/17 08/06/17 12:09 06:36 21:07 POC Glucose 292 H 161 H 141 H 08/06/17 17:07 POC Glucose 259 H Phys Exam - Physical Examination Constitutional: NAD HEENT: moist MMs Neck: supple Respiratory: clear to auscultation bilateral Cardiovascular: RRR Gastrointestinal: soft Neurological: moves all 4 limbs Psychiatric: normal affect Skin: no rash Dx/Plan (1) Hypertensive urgency Code(s): I16.0 - HYPERTENSIVE URGENCY Status: Acute (2) COPD exacerbation Code(s): J44.1 - CHRONIC OBSTRUCTIVE PULMONARY DISEASE W (ACUTE) EXACERBATION Status: Acute (3) Influenza A Code(s): J10.1 - FLU DUE TO OTH IDENT INFLUENZA VIRUS W OTH RESP MANIFEST Status: Acute (4) CAD (coronary artery disease) Code(s): I25.10 - ATHSCL HEART DISEASE OF [place] CORONARY ARTERY W/O ANG PCTRS Status: Chronic Qualifiers: Coronary Disease-Associated Artery/Lesion type: [place] artery [place] vs. transplanted heart: [place] heart Associated angina: without angina Qualified Code(s): I25.10 - Atherosclerotic heart disease of [place] coronary artery without angina pectoris (5) DM type 2 (diabetes mellitus, type 2) Status: Chronic Qualifiers: Diabetes mellitus complication status: with hyperglycemia Diabetes mellitus fdc insulin use: with fdc use Qualified Code(s): E11.65 - Type 2 diabetes mellitus with hyperglycemia; Z79.4 - correction (current) use of insulin (6) ESRD (end stage renal disease) on dialysis Code(s): N18.6 - END STAGE RENAL DISEASE; Z99.2 - DEPENDENCE ON RENAL DIALYSIS Status: Chronic (7) Hypertension Code(s): I10 - ESSENTIAL (PRIMARY) HYPERTENSION Status: Chronic Qualifiers: Hypertension type: essential hypertension Qualified Code(s): I10 - Essential (primary) hypertension (8) Osteoporosis Code(s): M81.0 - AGE-RELATED OSTEOPOROSIS W/O CURRENT PATHOLOGICAL FRACTURE Status: Chronic - Plan * . Start scheduled hydralazine, PRN clonidine. Monitor vital signs, titrate antihypertensives as needed. Hold discharge, reassess tomorrow. Review of Systems - Review of Systems Cardiovascular: negative: chest pain, palpitations, orthopnea, paroxysmal nocturnal dyspnea, edema, light headedness, other Gastrointestinal: negative: Nausea, Vomiting, Abdominal Pain, Diarrhea, Constipation, Melena, Hematochezia - Medications/Allergies Allergies/Adverse Reactions: Allergies Allergy/AdvReac Type Severity Reaction Status Date / Time meperidine HCl [From Demerol] Allergy Verified 02/04/16 00:20 Medications: Current Medications Acetaminophen (Tylenol) 650 mg PO Q4H PRN PRN Reason: Headache/Fever or Pain Last Admin: 08/05/17 22:19 Dose: 650 mg Hydrocodone Bitart/Acetaminophen ([place] 5/325) 1 tab PO Q4H PRN PRN Reason: Moderate Pain (4-6) Albuterol/Ipratropium (Duoneb) 3 ml NEB QID-RT [facility] Last Admin: 08/07/17 15:47 Dose: Not Given Albuterol/Ipratropium (Duoneb) 3 ml NEB PRN PRN PRN Reason: Dyspnea/Wheezing/SOB Last Admin: 08/07/17 00:42 Dose: 3 ml Amlodipine Besylate (Norvasc) 5 mg PO NOW [facility] Stop: 08/07/17 17:45 Last Admin: 08/07/17 15:45 Dose: 5 mg Benzonatate (Tessalon) 100 mg PO TIDPRN PRN PRN Reason: Cough Last Admin: 08/06/17 23:56 Dose: 100 mg Carvedilol (Coreg) 12.5 mg PO BID-[facility] Last Admin: 08/07/17 08:50 Dose: 12.5 mg Clonidine (Catapres) 0.1 mg PO Q4H PRN PRN Reason: SBP Greater Than 180 Clopidogrel Bisulfate (Plavix) 75 mg PO DAILY [facility] Last Admin: 08/07/17 08:51 Dose: 75 mg Dextrose/Water (Dextrose 50%) 25 gm SLOW IVP PRN PRN PRN Reason: Hypoglycemia Ergocalciferol (Drisdol) 1.25 mg PO Q7D [facility] Last Admin: 08/04/17 11:44 Dose: 1.25 mg Escitalopram Oxalate (Lexapro) 10 mg PO DAILY [facility] Last Admin: 08/07/17 08:51 Dose: 10 mg Glucagon (Glucagon) 1 mg IM PRN PRN PRN Reason: Hypoglycemia Guaifenesin/Codeine Phosphate (Robitussin Ac) 10 ml PO Q4HR PRN PRN Reason: Cough Last Admin: 08/06/17 21:18 Dose: 10 ml Guaifenesin/Dextromethorphan (Robitussin Dm) 15 ml PO Q4H PRN PRN Reason: Cough Last Admin: 08/05/17 14:26 Dose: 15 ml Hydralazine HCl (Apresoline) 10 mg SLOW IVP Q3H PRN PRN Reason: SBP Greater Than 170 Last Admin: 08/07/17 12:47 Dose: 10 mg Hydralazine HCl (Apresoline) 25 mg PO QID [facility] Dextrose/Water (D5w) 1,000 mls @ 0 mls/hr IV .Q0M PRN; As Directed PRN Reason: Hypoglycemia Insulin Detemir 20 units/ (Miscellaneous Medication) 0.2 mls @ 0 mls/hr SC QAM [facility] Last Admin: 08/07/17 08:52 Dose: 0.2 mls Insulin Human Lispro (Humalog) 0 units SC .MODERATE SLIDING SC PRN PRN Reason: Moderate Correctional Scale Last Admin: 08/07/17 13:38 Dose: 6 unit Methylprednisolone Sodium Succinate (Solu-Medrol) 40 mg IVP Q6HR [facility] Last Admin: 08/07/17 14:29 Dose: Not Given Mometasone Furoate/Formoterol Fumar (Dulera 200 Mcg/5 Mcg Inhaler) 1 puff INH BID-RT [facility] Last Admin: 08/07/17 06:38 Dose: 1 puff Ondansetron HCl (Zofran Odt) 4 mg PO Q6H PRN PRN Reason: Nausea/Vomiting Last Admin: 08/04/17 21:27 Dose: 4 mg Oseltamivir Phosphate (Tamiflu) 30 mg PO MoWeFr@0900 [facility] Stop: 08/10/17 09:01 Last Admin: 08/06/17 15:14 Dose: 30 mg Pantoprazole Sodium (Protonix) 40 mg PO DAILY [facility] Last Admin: 08/07/17 08:51 Dose: 40 mg Sevelamer Carbonate (Renvela) 800 mg PO TID-WM [facility] Last Admin: 08/07/17 14:23 Dose: 800 mg Vitamin B Complex/Vit C/Folic Acid (Nephro-Malika Tablet) 1 tab PO DAILY [facility] Last Admin: 08/07/17 08:51 Dose: 1 tab
[2017-08-07] MEDS: hydrALAZINE 25 MG TAB PO SCH (20:21)
[2017-08-07] MEDS ORDERED: diphenhydrAMINE 25 MG CAP PO SCH (20:45)
[2017-08-08] MEDS: HumaLOG 300 UNITS/3 ML VIAL SC PRN (05:48)
[2017-08-08] MEDS: Mometasone/Formoterol 120 PUFF INHALER INH SCH (07:13)
--- NOTE | 2017-08-08 08:39 | PDOC.PN ---
- Subjective Encounter Start Date: 08/08/17 Encounter Start Time: 08:38 Subjective: pleasant, c/o left side pain, no new complaints - Objective Resuscitation Status: Resuscitation Status FULL:Full Resuscitation MAR Reviewed: Yes Vital Signs & Weight: Vital Signs (12 hours) Temp Pulse Resp BP BP BP Pulse Ox 08/08/17 07:32 96.9 F L 60 16 179/77 H 92 L 08/08/17 07:13 76 16 08/08/17 06:57 76 16 08/08/17 03:30 97.4 F L 69 18 179/77 H 93 L 08/07/17 23:58 66 165/74 H 08/07/17 23:18 193/77 H 08/07/17 23:07 97.7 F 65 16 193/77 H 91 L 08/07/17 21:20 196/87 H Weight Weight 177 lb 14.4 oz I&O: 08/07/17 08/08/17 08/09/17 06:59 06:59 06:59 Intake Total 2099 Output Total 1999 Balance -1999 2099 Result Diagrams: 08/07/17 09:53 08/07/17 09:53 Additional Labs: Accuchecks 08/08/17 08/07/17 08/07/17 05:43 20:41 17:01 POC Glucose 187 H 127 H 122 H 08/07/17 12:09 POC Glucose 292 H Phys Exam - Physical Examination Constitutional: NAD HEENT: PERRLA, moist MMs, sclera anicteric Neck: supple, full ROM Respiratory: no rhonchi, clear to auscultation bilateral Cardiovascular: RRR, no rub Gastrointestinal: soft, non-tender, no distention Musculoskeletal: no edema, pulses present Neurological: non-focal, moves all 4 limbs Psychiatric: normal affect, A&O x 3 Dx/Plan (1) COPD exacerbation Code(s): J44.1 - CHRONIC OBSTRUCTIVE PULMONARY DISEASE W (ACUTE) EXACERBATION Status: Acute (2) Hypertensive urgency Code(s): I16.0 - HYPERTENSIVE URGENCY Status: Acute (3) Influenza A Code(s): J10.1 - FLU DUE TO OTH IDENT INFLUENZA VIRUS W OTH RESP MANIFEST Status: Acute (4) CAD (coronary artery disease) Code(s): I25.10 - ATHSCL HEART DISEASE OF [place] CORONARY ARTERY W/O ANG PCTRS Status: Chronic Qualifiers: Coronary Disease-Associated Artery/Lesion type: [place] artery [place] vs. transplanted heart: [place] heart Associated angina: without angina Qualified Code(s): I25.10 - Atherosclerotic heart disease of [place] coronary artery without angina pectoris (5) DM type 2 (diabetes mellitus, type 2) Status: Chronic Qualifiers: Diabetes mellitus complication status: with hyperglycemia Diabetes mellitus skilled nursing insulin use: with skilled nursing use Qualified Code(s): E11.65 - Type 2 diabetes mellitus with hyperglycemia; Z79.4 - terminal block assembler (current) use of insulin (6) ESRD (end stage renal disease) on dialysis Code(s): N18.6 - END STAGE RENAL DISEASE; Z99.2 - DEPENDENCE ON RENAL DIALYSIS Status: Chronic (7) Hypertension Code(s): I10 - ESSENTIAL (PRIMARY) HYPERTENSION Status: Chronic Qualifiers: Hypertension type: essential hypertension Qualified Code(s): I10 - Essential (primary) hypertension (8) Osteoporosis Code(s): M81.0 - AGE-RELATED OSTEOPOROSIS W/O CURRENT PATHOLOGICAL FRACTURE Status: Chronic (9) COPD (chronic obstructive pulmonary disease) Status: Suspected Comment: - Plan cont current plan of care continued labile bp. dialysis today per renal..bp should improve..will f/u * .
--- NOTE | 2017-08-08 09:25 | PRG ---
DATE OF SERVICE: 08/08/2017 RENAL MEDICINE SUBJECTIVE: Ms. Dean is 87-year-old white female, who was admitted for upper respiratory tract infec tion. We were following her up for maintenance hemodialysis. She is due for dialysis today. Her co ugh and shortness of breath is much improved. Please note this patient has been maxed out on the flu id removal to help with the possible superimposed congestive heart failure with this patient. She is also being treated with steroids for shortness of breath/COPD exacerbation. No new complaints today, feeling better. OBJECTIVE: VITAL SIGNS: Blood pressure is 179/77, heart rate 60, respiratory rate 16, temperature 96.9. GENERAL: Awake, alert, comfortable, sitting, not in distress. SKIN: Adequate turgor. HEENT: Slightly pale conjunctivae, anicteric sclerae. NECK: No neck mass, no carotid bruits, no JVD. CHEST: No deformities. LUNGS: Clear breath sounds. HEART: Normal sinus rhythm. No murmur, no gallops, no rubs. ABDOMEN: Globular, soft, nontender, no masses. EXTREMITIES: No edema, no deformities. MEDICATIONS: Medications of 08/08/2017 was reviewed. LABORATORY DATA: Laboratories of 08/07/2017; white count 10, hemoglobin 13.3, sodium 132, potassium 4.6, chloride 95, carbon dioxide 26, BUN 52, creatinine 3.75, glucose 303, calcium 9.6. ASSESSMENT AND PLAN: 1. End-stage renal disease, stable. We will continue current hemodialysis regimen. Again, max out fluid removal as tolerated by the patient. We will not change any of our hemodialysis about the pres ent time. Her potassium is noted to be within normal. I most likely will be using 2-0 potassium bat h. 2. Labile hypertension - hydralazine has been initiated 25 mg p.o. t.i.d. 3. Flu/upper respiratory tract infection - on Tamiflu and steroids. 4. Chronic obstructive pulmonary disease exacerbation, currently on DuoNeb and steroid treatment. Overall, agree with current management. Consider discharge in a.m. if the patient is stable.
[2017-08-08] MEDS: Sevelamer Carbonate 800 MG TAB PO SCH ×3 (09:47→18:40)
[2017-08-08] MEDS: Carvedilol 25 MG TAB PO SCH ×2 (09:47→18:39)
[2017-08-08] MEDS: hydrALAZINE 25 MG TAB PO SCH ×3 (09:48→18:39)
[2017-08-08] MEDS: Folic Acid/Vit B Comp W-C PO SCH (09:48)
[2017-08-08] MEDS: Clopidogrel Bisulfate 75 MG TAB PO SCH (09:48)
[2017-08-08] MEDS: Escitalopram Oxalate 10 mg Tablet PO SCH (09:48)
[2017-08-08] MEDS: Insulin Detemir 100 UNITS/ML 20 UNITS in Pre-Filled Syringe 1 EACH SC SCH (09:49)
[2017-08-08] MEDS: Oseltamivir 6 MG/ML ORAL SUSP PO SCH (09:49)
[2017-08-08] MEDS ORDERED: Heparin 10,000 UNITS/ 10 ML VIAL ONE (14:46)
[2017-08-08 15:39] VITALS: TEMP 97.7
[2017-08-08 18:26] VITALS: BP 173/74
--- NOTE | 2017-08-08 23:16 | ADD-PRG ---
DATE OF SERVICE: 08/08/2017 RENAL MEDICINE SUBJECTIVE: Ms. Dean is an 87-year-old ESRD patient. I am currently at the bedside supervising dial héctor. She is tolerating dialysis treatment. The plan is to discharge her after dialysis.
--- NOTE | 2017-08-09 00:05 | DIS ---
DATE OF ADMISSION: 08/04/2017 DATE OF DISCHARGE: 08/08/2017 PRIMARY DISCHARGE DIAGNOSES: 1. Hypertensive urgency. 2. End-stage renal disease. CONSULTATIONS: Dr. Covington, Nephrology. PROCEDURES: Hemodialysis. HOSPITAL COURSE: The patient is an 87-year-old female who was admitted with upper respiratory tract infection. She was also noted to have elevated blood pressures. Her backfiller, Dr. Covington, was cons ulted. He felt that the patient was near her baseline with her elevated blood pressures. He did ramos lyze her during her visit. He felt that she was stable for discharge and to continue her normal , Sunday, Sunday dialysis schedule. The patient was noted to have a viral upper respiratory inf ection. She was treated with Tamiflu, which will be continued as an outpatient. DISPOSITION: To home assisted living facility. DISCHARGE DIET: Renal diet, as well as cardiac heart healthy. DISCHARGE ACTIVITY: As tolerated. DISCHARGE MEDICATIONS: Please see med rec list. PHYSICAL EXAMINATION: HEAD: Normocephalic, atraumatic. CARDIAC: Regular rate and rhythm. LUNGS: Clear to auscultation. EXTREMITIES: No clubbing, cyanosis. There is trace edema bilaterally. FOLLOWUP: The patient is to follow up with her PCP within 7 days. She is also to resume her hemodia lysis schedule including dialysis this Sunday. The patient is to continue her home antihypertensive regimen and further adjustments will be made by her PCP and/or backfiller.
== END 2017-08-08 18:45 | disposition home or self-care (01) | DRG 190 ==
LOC: ERS 20:19 → 2SW 20:45 → OBSVTOIN 20:45
PROVIDERS: ADMIT Family Medicine; ATTEND Family Medicine
PROC: 5A1D70Z Performance of Urinary Filtration, Intermittent, Less than 6 Hours Per Day (ICD-10-PCS; principal; 2017-08-04)
DX: J44.1 Chronic obstructive pulmonary disease with (acute) exacerbation (principal); J96.01 Acute respiratory failure with hypoxia; N18.6 End stage renal disease; I12.0 Hypertensive chronic kidney disease with stage 5 chronic kidney disease or end stage renal disease; Z85.528 Personal history of other malignant neoplasm of kidney; E11.22 Type 2 diabetes mellitus with diabetic chronic kidney disease; Z99.2 Dependence on renal dialysis; M81.0 Age-related osteoporosis without current pathological fracture; Z79.4 Long term (current) use of insulin; Z66 Do not resuscitate; I25.2 Old myocardial infarction; I25.10 Atherosclerotic heart disease of native coronary artery without angina pectoris; E78.5 Hyperlipidemia, unspecified; E11.21 Type 2 diabetes mellitus with diabetic nephropathy; J10.1 Influenza due to other identified influenza virus with other respiratory manifestations; I16.0 Hypertensive urgency
CPT/HCPCS: 36415; 36416; 80048; 80069; 85025; 87340; 90935; 94664; G0257; G8978-GP-CK; G8979-GP-CJ; G8987-GO-CL; G8988-GO-CJ; J0360; J1644; J1815; J2920; J7611; J7620; Q0162

== ENCOUNTER 2017-09-19 18:51 | Inpatient (IN) | payer MEDICARE ==
[2017-09-19 19:46] LABS: #Eosinphils 0.1 thou/uL (0.0-0.7); #Monocytes 0.5 thou/uL (0.11-0.59); #Neutrophils 5.7 thou/uL (1.40-6.50); %Basophils 0.2 % (0.0-1.0); %Eosinophils 1.9 % (0.0-10.0); %Lymphocytes 13.2 % (21.0-51.0); %Monocytes 6.2 % (0.0-10.0); %Neutrophils 78.4 % (42.0-75.0); Hemoglobin 11.4 g/dL (12.0-16.0); Mean Corpuscular HGB CONC 32.5 g/dL (32.0-36.0); Mean Corpuscular Hemoglobin 32.3 pg (27.0-31.0); Mean Corpuscular Volume 99.5 fl (81.0-99.0); Platelet Count 238 thou/uL (130-400); RBC Distribution Width 15.4 % (11.5-14.5); Red Blood Cell (RBC) Count 3.55 mill/uL (4.20-5.40); White Blood Cell (WBC) Count 7.3 thou/uL (4.8-10.8)
[2017-09-19 20:05] LABS: ALT (SGPT) 9 U/L (8-55); AST (SGOT) 18 U/L (5-34); Albumin 3.3 g/dL (3.4-4.8); Alkaline Phosphatase 85 U/L (40-150); Anion Gap 11 mmol/L (10-20); BUN (Urea Nitrogen) 14 mg/dL (9.8-20.1); Bilirubin, Total 0.4 mg/dL (0.2-1.2); Calc. Creatinine Clearance 0 mL/min (70-130); Calcium 9.3 mg/dL (7.8-10.44); Carbon Dioxide 34 mmol/L (23-31); Chloride 97 mmol/L (98-107); Estimated GFR-MDRD 17; Globulin 2.9 g/dL (2.4-3.5); Glucose 144 mg/dL (83-110); Potassium 3.5 mmol/L (3.5-5.1); Protein, Total 6.2 g/dL (6.0-8.3); Sodium 138 mmol/L (136-145)
[2017-09-19 21:43] VITALS: BMI 30.4
[2017-09-20] MEDS ORDERED: Bisacodyl 5 MG TAB PO PRN (01:35)
[2017-09-20] MEDS ORDERED: Acetaminophen 325 MG TAB PO PRN (01:35)
[2017-09-20] MEDS ORDERED: Acetaminophen 650 MG Suppository PR PRN (01:35)
[2017-09-20] MEDS ORDERED: Loperamide HCl 2 MG CAP PO PRN (01:38)
[2017-09-20] MEDS ORDERED: guaiFENesin/Codeine Phosphate 200 mg/20 mg 10 ml UD Cup PO PRN (01:38)
[2017-09-20] MEDS ORDERED: traMADol HCl 50 MG TAB PO PRN (01:38)
[2017-09-20] MEDS ORDERED: Benzonatate 100 MG CAP PO PRN (01:38)
[2017-09-20] MEDS ORDERED: Dextrose 50% Abboject 50 ML SYRINGE SLOW IVP PRN (01:40)
[2017-09-20] MEDS ORDERED: Dextrose 5% in Water 1,000 ML IV PRN (01:40)
[2017-09-20] MEDS ORDERED: HumaLOG 300 UNITS/3 ML VIAL SC PRN (01:40)
--- NOTE | 2017-09-20 02:15 | HP ---
PRIMARY CARE PHYSICIAN: Richmond Delatorre M.D. CHIEF COMPLAINT: Escherichia coli bacteremia. HISTORY OF PRESENT ILLNESS: Ms. Dean is a pleasant 87-year-old lady who was seen at [facility] on 09/20/2017 after she was sent to the emergency room by her community health outreach worker, Dr. Covington for positive blood cultures. She reports that she has been feeling unwell over the last few days. She is unable to describe it fu rther. She denies any dysuria. She denies any cough. She denies any fevers or chills. She reports generalized weakness and fatigue. She had blood cultures drawn by her community health outreach worker on 09/18/2017. Preliminary reports indicate Enteroc occus faecalis and gram positive cocci. She was therefore advised to come to the emergency room. REVIEW OF SYSTEMS: The following complete review of systems was negative, unless otherwise mentioned in the HPI or below: Constitutional: Weight loss or gain, ability to conduct usual activities. Sk in: Rash, itching. Eyes: Double vision, pain. ENT/Mouth: Nose bleeding, neck stiffness, pain, te nderness. Cardiovascular: Palpitations, dyspnea on exertion, orthopnea. Respiratory: Shortness of breath, wheezing, cough, hemoptysis, fever or night sweats. Gastrointestinal: Poor appetite, abdom inal pain, heartburn, nausea, vomiting, constipation, or diarrhea. Genitourinary: Urgency, frequenc y, dysuria, nocturia. Musculoskeletal: Pain, swelling. Neurologic/Psychiatric: Anxiety, depressio n. Allergy/Immunologic: Skin rash, bleeding tendency. PAST MEDICAL HISTORY: COPD, hypertension, end-stage renal disease on hemodialysis Sunday, , and Sunday, diabetes mellitus type 2, coronary artery disease, myocardial infarction, osteoporosis , renal cancer status post nephrectomy. PAST SURGICAL HISTORY: Significant for hysterectomy and right-sided nephrectomy and dialysis cathete r. FAMILY HISTORY: No family history of clotting or bleeding disorder. SOCIAL HISTORY: Patient denies tobacco use, alcohol use and recreational drug use. CODE STATUS: Her members discussed with the nursing staff and reported that she is DNR. She also cornelius s an out of hospital DNR. ALLERGIES: DEMEROL, MEPERIDINE. CURRENT MEDICATIONS: Include amlodipine 10 mg daily, Tessalon Perles p.r.n., biotin 800 mcg daily, S ymbicort 160/4.5 two puffs 3 times a day, vitamin D3 of 10,000 units every week, Plavix 75 mg daily, escitalopram 10 mg daily, Faith-Malika 0.8 mg daily, Robitussin-AC p.r.n., Lantus insulin 20 units in th e morning, DuoNebs p.r.n., lactulose 30 grams daily, loperamide p.r.n., Zofran p.r.n., Protonix 40 mg daily, Renvela 800 mg 3 times a day, tramadol p.r.n. PHYSICAL EXAMINATION: GENERAL: On examination, Ms. Dean is sleepy, but arousable, not in acute distress. VITAL SIGNS: Temperature is 99 degrees Fahrenheit, pulse is 79. She is breathing at rate of 18, and saturating 92% on 1-1/2 liters of oxygen. Blood pressure is 146/64. EYES: No scleral icterus. No conjunctival pallor. ENT: Moist mucosal membranes, no oropharyngeal erythema or exudates. NECK: Supple, nontender, normal range of movement. Trachea is midline. RESPIRATORY: Accessory muscles of breathing are not active. Chest wall movements are symmetric bila terally. LUNGS: Clear to auscultation, without wheeze, rhonchi or crepitations. CARDIOVASCULAR: S1 and S2 are heard, regular. Peripheral pulses palpable. No carotid bruit, no per icardial rub. She has hemodialysis catheter over the right chest wall, site appears clean. ABDOMEN: Soft, nontender, bowel sounds heard, no hepatomegaly, no splenomegaly. NEUROLOGIC: Cranial nerves II-XII are intact. Deep tendon reflexes 2+. SKIN: No rashes or subcutaneous nodules. LYMPHATIC: No cervical lymphadenopathy. PSYCHIATRIC: Normal mood, normal affect, patient is oriented to person and place, not to time. LABORATORIES AND INVESTIGATIONS: Ms. Dean's labs and investigations were reviewed. She has normal w eran count, macrocytic anemia with hemoglobin 11.4, normal platelet count, normal sodium, normal pota ssium, elevated carbon dioxide of 34, elevated creatinine of 2.61, decreased albumin of 3.3, otherwis e unremarkable liver profile and normal lactic acid. ASSESSMENT AND PLAN: Ms. Dean is a pleasant 87-year-old lady who was seen at [facility] on 09/20/2017. Her problem list includes: 1. Bacteremia: Ms. Dean will be admitted to the hospital for further management. We will continue her on vancomycin for now. We will request pharmacy help with dosing. Follow cultures. 2. End-stage renal disease, on dialysis: Nephrology service to direct dialysis schedule. 3. Coronary artery disease: This appears stable. 4. Diabetes mellitus: Continue Lantus insulin, start Accu-Cheks and insulin sliding scale. 5. Hypertension: Monitor vital signs, titrate antihypertensives as needed. 6. Chronic obstructive pulmonary disease: Stable. Many thanks for allowing me to participate in your patient's care. Please feel free to contact me wi th any questions or concerns. LEVEL OF RISK: Moderate. LEVEL OF COMPLEXITY: Moderate.
[2017-09-20] MEDS ORDERED: Vancomycin HCl 750 MG in Sodium Chloride 0.9% 250 ML 250 ML IVPB SCH (02:30)
[2017-09-20] MEDS ORDERED: Vancomycin HCl 1 GM in Premix Bag 1 BAG IVPB SCH (02:30)
[2017-09-20] MEDS ORDERED: Vancomycin HCl 500 MG in Sodium Chloride 0.9% 100 ML IVPB SCH (02:30)
[2017-09-20] MEDS ORDERED: Vancomycin HCl 1.25 GM in Sodium Chloride 0.9% 250 ML 250 ML IVPB SCH (02:30)
[2017-09-20] MEDS ORDERED: HOLD VANCOMYCIN FOR LEVEL >20 FS SCH (02:30)
[2017-09-20 04:29] LABS: #Eosinphils 0.1 thou/uL (0.0-0.7); #Lymphocytes 1.1 thou/uL (1.20-3.40); #Monocytes 0.5 thou/uL (0.11-0.59); #Neutrophils 4.7 thou/uL (1.40-6.50); %Basophils 0.6 % (0.0-1.0); %Eosinophils 2.2 % (0.0-10.0); %Lymphocytes 16.4 % (21.0-51.0); %Monocytes 8.1 % (0.0-10.0); %Neutrophils 72.7 % (42.0-75.0); Hemoglobin 10.8 g/dL (12.0-16.0); Mean Corpuscular HGB CONC 32.8 g/dL (32.0-36.0); Mean Corpuscular Hemoglobin 32.6 pg (27.0-31.0); Mean Corpuscular Volume 99.3 fl (81.0-99.0); Mean Platelet Volume 7.1 fL (7.4-10.4); Platelet Count 225 thou/uL (130-400); RBC Distribution Width 15.5 % (11.5-14.5); Red Blood Cell (RBC) Count 3.32 mill/uL (4.20-5.40); White Blood Cell (WBC) Count 6.5 thou/uL (4.8-10.8)
[2017-09-20 04:47] LABS: Anion Gap 12 mmol/L (10-20); BUN (Urea Nitrogen) 16 mg/dL (9.8-20.1); Calc. Creatinine Clearance 17 mL/min (70-130); Calcium 9.2 mg/dL (7.8-10.44); Carbon Dioxide 32 mmol/L (23-31); Chloride 101 mmol/L (98-107); Estimated GFR-MDRD 15; Glucose 93 mg/dL (83-110); Potassium 3.5 mmol/L (3.5-5.1); Sodium 141 mmol/L (136-145)
[2017-09-20] MEDS: Mometasone/Formoterol 120 PUFF INHALER INH SCH ×3 (07:34→18:40)
[2017-09-20] MEDS ORDERED: BIOTIN 800 MCG PO SCH (09:00)
[2017-09-20] MEDS ORDERED: Non-Formulary Item 1 EACH (Insulin Glargine,Hum.Rec.Anlog 20 UNIT) SQ SCH (09:00)
[2017-09-20] MEDS ORDERED: FLU VACC TS2017-18 (>65YR) 0.5 ML SYRINGE IM ONE (09:00)
--- NOTE | 2017-09-20 10:04 | PRG ---
DATE OF SERVICE: 09/20/2017 SUBJECTIVE: Ms. Dean is an 87-year-old white female with ESRD on maintenance hemodialysis. She repo rted to her PCP the day before yesterday due to fever. A blood culture was done and showed Enterococ cus. For that reason, the patient underwent hemodialysis yesterday and she received a gram of vancom ycin and gentamicin. However, the fever was persistent. She was admitted for further management. S he most likely has underlying bacteremia. This morning she is feeling better. OBJECTIVE: VITAL SIGNS: Blood pressure is 163/78, heart rate 75, respiratory rate 20, temperature 98.5, pulse o x 93%. GENERAL: Awake, alert, comfortable, not in distress. SKIN: Adequate turgor. HEENT: She has pinkish conjunctivae, anicteric sclerae. NECK: No neck mass, no carotid bruits, no JVD. CHEST: No deformities. LUNGS: Clear breath sounds. HEART: Normal sinus rhythm. No murmurs, no gallops or rubs. ABDOMEN: Globular, soft, nontender, no masses. EXTREMITIES: No edema, no deformities. MEDICATIONS: 09/20/2017 - Reviewed. LABORATORY: 09/20/2017 - Sodium 141, potassium 3.5, chloride 101, carbon dioxide 32, BUN 16, creatin ine 2.94, glucose 93, calcium 9.2. White count is 6.5, hemoglobin 10.8. Tentative report blood culture shows Enterococcus. Vancomycin is noted at 6.0. ASSESSMENT AND PLAN: 1. Line bacteremia - Enterococcus - we will probably redosed vancomycin 1 gram IV today. Consider s urgical consult for line replacement. Recheck basic met and gentamicin levels in the a.m. 2. End-stage renal disease, stable. We will continue current hemodialysis regimen on Sunday, and Sunday. Overall, I agree with current management.
[2017-09-20] MEDS: Escitalopram Oxalate 10 mg Tablet PO SCH (10:08)
[2017-09-20] MEDS: Folic Acid/Vit B Comp W-C PO SCH (10:08)
[2017-09-20] MEDS: Clopidogrel Bisulfate 75 MG TAB PO SCH (10:08)
[2017-09-20] MEDS: Sevelamer Carbonate 800 MG TAB PO SCH ×3 (10:08→18:06)
[2017-09-20] MEDS: Amlodipine 10 MG TAB PO SCH (10:09)
[2017-09-20] MEDS: Insulin Detemir 100 UNITS/ML 20 UNITS in Pre-Filled Syringe 1 EACH SC SCH ×2 (10:10→13:19)
[2017-09-20] MEDS: Heparin 5,000 UNITS/ML VIAL SC SCH ×3 (10:10→20:13)
[2017-09-20] MEDS: Ondansetron ODT 4 MG TAB PO PRN (10:40)
[2017-09-20] MEDS ORDERED: Lidocaine 1% (PF) 30 ML VIAL ONE (12:04)
[2017-09-20] MEDS ORDERED: Lidocaine 1% w/Epinephrine 1:200K 30 ML VIAL FS SCH (12:15)
--- NOTE | 2017-09-20 18:43 | ULT ---
BILATERAL UPPER EXTREMITY VENOUS MAPPING 09/20/17 HISTORY: End-stage renal disease. Evaluate for dialysis access. Failed arteriovenous dialysis fistula in the r ight arm. FINDINGS: There is normal lumen compressibility and flow in the right internal jugular vein with normal flow in the right subclavian vein. There is normal lumen compressibility and flow in the right axillary vein . There is a thrombosed right upper extremity arteriovenous dialysis fistula. Small portion of the fi stula does demonstrate flow on color flow and doppler evaluation. However, the majority of the fistul a does appear thrombosed on real time imaging and is incompletely evaluated on this exam otherwise. LEFT UPPER EXTREMITY BRACHIAL ARTERY: 4.7 mm RADIAL ARTERY: 2.2 mm ULNAR ARTERY: 1.6 mm CEPHALIC VEIN Upper Arm: 2.7 mm Mid Arm: 2.6 mm Distal Arm: 2 mm Antecubital Fossa: 2 mm Proximal Forearm: 2.9 mm Mid Forearm: 2.5 mm Distal Forearm: 1.9 mm BASILIC VEIN Upper Arm: 6.4 mm Mid Arm: 5.6 mm Distal Arm: 4.7 mm Antecubital Fossa: 2.2 mm Proximal Forearm: 2.3 mm Mid Forearm: 2.3 mm Distal Forearm: 1.7 mm There is normal flow present within the left internal jugular and subclavian veins with normal lumen compressibility seen in the left internal jugular and axillary veins. There is incidental note made o f calcified atherosclerotic plaque in the region of the left common carotid artery and internal carot id artery incompletely evaluated on this exam. IMPRESSION: 1. Left upper extremity cephalic and basilic vein diameters as described above. 2. Thrombosed right upper extremity arteriovenous dialysis fistula with flow only in a portion o f the fistula present. 3. Incidental note is made of calcified atherosclerotic plaque in the left common carotid and in ternal carotid arteries. POS: [facility]
--- NOTE | 2017-09-21 00:25 | CON ---
DATE OF CONSULTATION: 09/20/2017 REASON FOR CONSULTATION: Suspected infected hemodialysis catheter. HISTORY: Ms. Dean is an 87-year-old woman with malaise of several days duration and blood cultures were taken at dialysis and both came back positive for Enterococcus. She was treated with IV antibiotics, but continued to feel poorly, so was admitted to the hospital. Her toxicology supervisor has requested removal of her dialysis catheter. The patient has not had any high fevers as she recalls. Had chills, just feels tired and weak. She denies any cough, sore throat, runny nose, nausea, vomiting, diarrhea, abdominal pain, dysuria, or other infectious symptoms. REVIEW OF SYSTEMS: Ten system review of systems is negative except per HPI. PAST MEDICAL HISTORY: COPD, hypertension, end-stage renal failure on dialysis, diabetes, heart disease, osteoporosis, and renal cancer. PAST SURGICAL HISTORY: Nephrectomy, hysterectomy, hemodialysis catheter, and previous fistula on the right side in the upper arm. FAMILY HISTORY: Noncontributory. SOCIAL HISTORY: The patient does not smoke, drink, or use illicit drugs. OUTPATIENT MEDICATIONS: Include amlodipine, Biotin, Symbicort, vitamin D, Plavix, escitalopram, Faith-Malika, Lantus, DuoNeb, lactulose, loperamide, Protonix , Ranvela, and multiple p.r.n. She has received vancomycin as an inpatient and as well as most of her chronic medications and sliding scale insulin. PHYSICAL EXAMINATION: VITAL SIGNS: The patient has been afebrile since her admission. Heart rate 70s -80s, blood pressure 160s-170s systolic over 60s-70s diastolic, respirations 20. She is on the 90s on 1.5 liters per minute oxygen, but does not use oxygen at home. GENERAL: Reveals a pleasant elderly woman, in no acute distress. She is not jaundiced or icteric. She is not flushed or toxic in appearance. She is agreeable and able to answer direct questions, although she is somewhat vague on her history, especially when it comes to timeline. HEENT: Unremarkable. NECK: Supple, without lymphadenopathy or thyroid nodules. Catheter is not tender to palpation. The cuff is palpable about a centimeter and half in from the skin exit site. There is no expressible drainage. HEART: Regular in its rate and rhythm. She has a soft systolic murmur at the upper sternal border. LUNGS: Clear to auscultation. There is some occasional expiratory wheezes. ABDOMEN: Soft, nontender, nondistended, no palpable masses or hernias noted. EXTREMITIES: Warm and well well-perfused. No significant upper extremity edema. She has healed surgical incisions in her right upper arm. There is no palpable thrill and bruit within her old access site. Fingers were pink and warm. No easily palpable veins into the left arm. NEUROLOGIC: No focal deficits. PSYCHIATRIC: Alert, oriented, and appropriate. LABORATORY DATA: White count is normal, hematocrit 32, platelets 225. Electrolytes are okay. BUN and creatinine are 16 and 2.94. ASSESSMENT: Likely line sepsis, her line was removed today per her toxicology supervisor 's request. We will plan on placing a new tunneled dialysis catheter tomorrow in the operating room. I did discuss with the patient the possibility of creating a fistula on her left arm for long-term access. According to the discussion with her toxicology supervisor, she had previously refused any additional attempts on placing an access, but she seems willing to consider today, I did order vein mapping. We will discuss this again tomorrow to see if she has decided to proceed. TRICIA
--- NOTE | 2017-09-21 00:27 | OP ---
PREOPERATIVE DIAGNOSIS: Line sepsis. POSTOPERATIVE DIAGNOSIS: Line sepsis. PROCEDURE: Removal of right internal jugular tunneled hemodialysis catheter. SURGEON: Carlitos Nicholson M.D. HISTORY: Ms. Dean is an 87-year-old woman with 2 positive blood cultures for Enterococcus attributed to a tunneled hemodialysis catheter. Removall has been requested by her label printer. PROCEDURE: After informed consent was obtained, the patient's neck and chest were prepped with ChloraPrep. Local anesthesia was infused to the skin and subcutaneous tissues surrounding the exit site and the subcutaneous cuff. On applying gentle traction to the catheter, the tissues surrounding the cuff were dissected free circumferentially. The catheter was removed during exhalation and pressure held at the exit site for five minutes. A gauze and Tegaderm dressing was placed to the exit site. The patient tolerated the procedure well. Estimated blood loss was minimal. There were no complications. There were no specimens. [facility]
[2017-09-21] MEDS: Mometasone/Formoterol 120 PUFF INHALER INH SCH ×3 (07:27→18:33)
[2017-09-21] MEDS: Amlodipine 10 MG TAB PO SCH (07:33)
[2017-09-21] MEDS: Sevelamer Carbonate 800 MG TAB PO SCH ×3 (08:00→17:14)
[2017-09-21] MEDS: Clopidogrel Bisulfate 75 MG TAB PO SCH (08:00)
[2017-09-21] MEDS: Insulin Detemir 100 UNITS/ML 20 UNITS in Pre-Filled Syringe 1 EACH SC SCH (09:00)
[2017-09-21] MEDS: Heparin 5,000 UNITS/ML VIAL SC SCH ×3 (09:00→20:31)
[2017-09-21] MEDS ORDERED: Heparin 10,000 UNITS/1 ML VIAL ONE (09:22)
[2017-09-21] MEDS ORDERED: Lidocaine 2% w/Epinephrine 1:200K 20 ML VIAL ONE (09:22)
[2017-09-21] MEDS ORDERED: Sodium Chloride 0.9% 20 ML ONE (09:22)
[2017-09-21] MEDS ORDERED: Bupivacaine 0.25% HCL 30 ML VIAL ONE (09:22)
[2017-09-21] MEDS ORDERED: PROPOFOL 20 ML ONE (09:31)
[2017-09-21] MEDS ORDERED: Fentanyl 100 MCG/2 ML VIAL ONE ×2 (09:31→11:40)
[2017-09-21] MEDS ORDERED: Vancomycin HCl 500 MG in Sodium Chloride 0.9% 100 ML IVPB SCH (10:00)
--- NOTE | 2017-09-21 11:15 | PDOC.OP ---
Operative Note - Operative Note Operative Note: PROCEDURE: Placement of left internal jugular tunneled hemodialysis catheter with ultrasound and fluoroscopic guidance. SURGEON: Carlitos Nicholson M.D. DATE OF PROCEDURE: 09/21/2017 PREOPERATIVE DIAGNOSIS: Acute/Chronic renal failure. POSTOPERATIVE DIAGNOSIS: Acute/Chronic renal failure. HISTORY: Patient with bacteremia requiring removal of her right internal jugular tunneled hemodialysis catheter. Replacement of tunneled hemodialysis catheter for ongoing dialysis has been requested by the patients structural metal fabricator apprentice. PROCEDURE: After informed consent was obtained and appropriate preoperative antibiotics were administered, the patient was taken to the Operating Room, placed in the supine position and monitored anesthesia care was administered. The neck and chest were prepped and draped in a standard sterile fashion and the patient placed in Trendelenburg position. A sterile ultrasound probe was used to identify the patent compressible right IJ vein which was accessed under direct ultrasound guidance. A wire was threaded through the needle but would not pass beyond the level of clavicle despite multiple attempts. The decision was made to place the catheter at the left IJ position. The patent compressible left IJ vein was identified and accessed under direct ultrasound guidance. The wire was confirmed by ultrasound to be within the patent compressible vessel, with the tip in the vena cava by fluoroscopy. Local anesthesia was infused to the skin and subcutaneous tissues of the left neck and chest. An infraclavicular incision was made and a catheter tunneled from the infraclavicular to the left IJ access site. The left IJ was sequentially dilated over the wire following which a dilator and sheath were placed over the wire and the dilator and wire removed leaving the sheath in place. The catheter was tunneled through the sheath which was then split and removed leaving the catheter in place. This was confirmed by fluoroscopy to be in good position in the superior vena cava with no kinking of the course of the catheter. Both ports easily aspirated dark venous nonpulsatile blood and easily flushed without resistance. Heparin was instilled to the quantity specified on the hub , and the hub was secured to the skin with 3-0 nylon sutures. The skin incision at the neck was closed in two layers with 4-0 Monocryl suture and Dermabond dressings were placed. The skin at the exit site was snugged up around the catheter with 4-0 Monocryl suture and Dermabond was placed there as well. Once the Dermabond was dry, a Biopatch and Tegaderm dressing was placed at the exit site. The patient was taken to Recovery in good condition. Estimated blood loss was minimal. There were no complications. There were no specimens.
[2017-09-21] MEDS ORDERED: Promethazine HCl 25 MG/ML VIAL SLOW IVP PRN (12:04)
[2017-09-21] MEDS ORDERED: Promethazine HCl 25 MG/ML VIAL IM PRN (12:04)
[2017-09-21] MEDS ORDERED: Ondansetron HCl/PF 4 MG/2 ML Vial IVP PRN (12:04)
--- NOTE | 2017-09-21 12:58 | PQF ---
DATE: 09-21-17 ATTN: DR. JEANNA TORO Please exercise your independent, professional judgment in responding to the clarification form. Clinical indicators are provided on the bottom of this form for your review Please check appropriate box(es): [ ] Sepsis due to: [ ] Device (please specify) [ ] Localized infection without sepsis [ ] Other diagnosis [ ] Unable to determine In addition, please specify: Present on Admission (POA): [ ] Yes [ ] No [ ] Unable to determine For continuity of documentation, please document condition throughout progress notes and discharge summary. Thank You. CLINICAL INDICATORS - SIGNS / SYMPTOMS / LABS ER DIAGNOSIS: INFECTED DIALYSIS HEMODIALYSIS CATHETER H&P: BACTEREMIA, POSITIVE BLOOD CULTURES CONSULT DR. VALE 09-20-17: LIKELY LINE SEPSIS RISK FACTORS: H&P: BACTEREMIA, POSITIVE BLOOD CULTURES CONSULT DR. VALE 09-20-17: LIKELY LINE SEPSIS ADVANCED AGE TREATMENTS: (MAR) VANCOMYCIN IV (This form is maintained as a part of the permanent medical record) 2014 [employer] All Rights Reserved LANNY [email or web address] Office: [phone] [facility] SYSTEM[facility]
[2017-09-21] MEDS: Ondansetron ODT 4 MG TAB PO PRN (13:09)
[2017-09-21] MEDS: Escitalopram Oxalate 10 mg Tablet PO SCH (14:11)
[2017-09-21] MEDS: Folic Acid/Vit B Comp W-C PO SCH (14:11)
[2017-09-21] MEDS ORDERED: PHENYLEPHRINE-NS 100 MCG/ML 10 ML SYRINGE ONE (16:25)
--- NOTE | 2017-09-21 16:31 | PRG ---
DATE OF SERVICE: 09/21/2017 SUBJECTIVE: Was called to call see Ms. Dean for neck hematoma. She had dialysis catheter placement by Dr. Nicholson earlier today. She is complaining of severe right neck pain. PHYSICAL EXAMINATION: VITAL SIGNS: Her blood pressure is 174/72, her pulse is 78, O2 sat is 95% on room air. NECK: Examination of right neck reveals a moderate size hematoma. There is no tracheal deviation. LUNGS: Bilateral chest sounds are clear. HEART: Regular rate and rhythm without murmur. ABDOMEN: Her dialysis catheter in the left neck appears intact. No swelling, no bleeding. IMAGING DATA: I have written for chest x-ray that is pending. ASSESSMENT: Right neck hematoma after hemodialysis catheter attempted placement today. The catheter is in the left neck now. PLAN: We will follow up on chest x-ray, but she has no signs of tracheal compromise. No dyspnea, no respiratory distress. We will follow.
--- NOTE | 2017-09-21 16:40 | PRG ---
DATE OF SERVICE: 09/21/2017 SUBJECTIVE: Ms. Dean is an 87-year-old white female with ESRD and admitted for line bacteremia. Shannon mancilla has no new complaints. A new dialysis catheter has been placed with her. Her old dialysis cath eter has been removed. She is complaining of some postop pain. OBJECTIVE: VITAL SIGNS: Blood pressure is 174/72, heart rate 70, respiratory rate 16, temperature 97.9, pulse o ximetry 95%. GENERAL: Awake, alert, comfortable, not in overt distress. SKIN: Adequate turgor. HEENT: Pinkish conjunctivae, anicteric sclerae. NECK: No neck mass, no carotid bruits, no JVD. CHEST: No deformities. LUNGS: Clear breath sounds. No wheezing, no crackles. HEART: Normal sinus rhythm. No murmur, no gallops or rubs. ABDOMEN: Globular, soft, nontender, no masses. EXTREMITIES: No edema or deformities. MEDICATIONS: Of 09/21/2017 was reviewed. LABORATORY DATA: Of 09/21/2017, gentamicin trough 1.7. Vancomycin level is 17. Of 09/20/2017, sodi um 141, potassium 3.5, chloride 101, carbon dioxide 32, BUN 16, creatinine 2.94, glucose 93, calcium 9.2. Hemoglobin 10.8. ASSESSMENT AND PLAN: 1. Line bacteremia - enterococcus -- patient has received vancomycin and gentamicin. Vancomycin lev el is noted to be therapeutic. Currently, we will continue IV vancomycin. Dialysis catheter has bee n changed. 2. End-stage renal disease -- due to the patient's request due to postop pain, we will hold dialysis today. We will reschedule her for dialysis in a.m. We will continue 3 times a week hemodialysis wit h this patient.
--- NOTE | 2017-09-21 16:59 | PDOC.PN ---
- Subjective Encounter Start Date: 09/21/17 Encounter Start Time: 16:58 Subjective: Seen and examined groaning in pain - Objective Resuscitation Status: Resuscitation Status DNR:Do Not Resuscitate Vital Signs & Weight: Vital Signs (12 hours) Temp Pulse Resp BP BP Pulse Ox 09/21/17 12:00 97.9 F 78 16 174/72 H 95 09/21/17 08:00 97.7 F 84 20 93 L 09/21/17 07:39 97.7 F 84 20 192/76 H 93 L 09/21/17 07:33 84 192/76 H Weight Weight 172 lb 3.2 oz I&O: 09/20/17 09/21/17 09/22/17 06:59 06:59 06:59 Intake Total 240 Balance 240 Result Diagrams: 09/20/17 03:33 09/20/17 03:33 Additional Labs: Accuchecks 09/21/17 09/21/17 09/21/17 13:00 06:31 05:13 POC Glucose 109 155 H 62 L 09/20/17 19:24 POC Glucose 77 Phys Exam - Physical Examination Constitutional: NAD HEENT: PERRLA, moist MMs, sclera anicteric Neck: no nodes, no JVD, supple, full ROM Respiratory: no wheezing, no rales, no rhonchi, clear to auscultation bilateral Cardiovascular: RRR, no significant murmur, no rub Gastrointestinal: soft, non-tender, no distention, positive bowel sounds Dx/Plan (1) Bacteremia Code(s): R78.81 - BACTEREMIA Status: Acute (2) CAD (coronary artery disease) Code(s): I25.10 - ATHSCL HEART DISEASE OF [place] CORONARY ARTERY W/O ANG PCTRS Status: Chronic Qualifiers: Coronary Disease-Associated Artery/Lesion type: [place] artery [place] vs. transplanted heart: [place] heart Associated angina: without angina Qualified Code(s): I25.10 - Atherosclerotic heart disease of [place] coronary artery without angina pectoris (3) DM type 2 (diabetes mellitus, type 2) Status: Chronic Qualifiers: Diabetes mellitus complication status: with hyperglycemia Diabetes mellitus assisted insulin use: with assisted use Qualified Code(s): E11.65 - Type 2 diabetes mellitus with hyperglycemia; Z79.4 - halfway (current) use of insulin (4) ESRD (end stage renal disease) on dialysis Code(s): N18.6 - END STAGE RENAL DISEASE; Z99.2 - DEPENDENCE ON RENAL DIALYSIS Status: Chronic (5) Hypertension Code(s): I10 - ESSENTIAL (PRIMARY) HYPERTENSION Status: Chronic Qualifiers: Hypertension type: essential hypertension Qualified Code(s): I10 - Essential (primary) hypertension - Plan continue antibiotics, PT/OT, social work faculty member Hemodialysis per Renal -: Pain management -: D/c home when ok with Renal services * .
--- NOTE | 2017-09-21 17:06 | RAD ---
CHEST ONE VIEW 09/21/17 HISTORY: Catheter placement. COMPARISON: 10/27/16. FINDINGS: The cardiac silhouette is magnified and enlarged. Pulmonary vasculature is upper limits of normal. Me diastinum is midline. Tip of a large caliber dialysis type catheter that starts at the left internal jugular level overlies the upper SVC. No evidence of pneumothorax. Hazy opacity at the left base has the appearance of pleural fluid. IMPRESSION: 1. Left dialysis catheter is in good radiographic position. 2. Borderline cardiomegaly. Probable small left pleural effusion. POS: [facility]
[2017-09-21] MEDS: HYDROcodone/Acetaminophen 10/325 mg Tablet PO PRN (20:30)
[2017-09-22 04:28] LABS: #Eosinphils 0.1 thou/uL (0.0-0.7); #Lymphocytes 1.3 thou/uL (1.20-3.40); #Monocytes 0.6 thou/uL (0.11-0.59); #Neutrophils 6.5 thou/uL (1.40-6.50); %Basophils 0.3 % (0.0-1.0); %Eosinophils 1.5 % (0.0-10.0); %Lymphocytes 15.3 % (21.0-51.0); %Monocytes 6.5 % (0.0-10.0); %Neutrophils 76.4 % (42.0-75.0); Hemoglobin 12.2 g/dL (12.0-16.0); Mean Corpuscular HGB CONC 32.4 g/dL (32.0-36.0); Mean Corpuscular Hemoglobin 32.1 pg (27.0-31.0); Mean Corpuscular Volume 99.2 fl (81.0-99.0); Mean Platelet Volume 6.9 fL (7.4-10.4); Platelet Count 232 thou/uL (130-400); RBC Distribution Width 15.2 % (11.5-14.5); White Blood Cell (WBC) Count 8.6 thou/uL (4.8-10.8)
[2017-09-22 05:00] LABS: Anion Gap 15 mmol/L (10-20); BUN (Urea Nitrogen) 23 mg/dL (9.8-20.1); Calc. Creatinine Clearance 11 mL/min (70-130); Calcium 9.8 mg/dL (7.8-10.44); Carbon Dioxide 24 mmol/L (23-31); Chloride 102 mmol/L (98-107); Estimated GFR-MDRD 9; Glucose 107 mg/dL (83-110); Potassium 4.2 mmol/L (3.5-5.1); Sodium 137 mmol/L (136-145)
[2017-09-22] MEDS: Mometasone/Formoterol 120 PUFF INHALER INH SCH ×3 (07:02→18:38)
[2017-09-22] MEDS: HYDROcodone/Acetaminophen 10/325 mg Tablet PO PRN ×2 (07:19→19:58)
[2017-09-22] MEDS: Sevelamer Carbonate 800 MG TAB PO SCH ×3 (08:00→18:21)
[2017-09-22] MEDS: Insulin Detemir 100 UNITS/ML 20 UNITS in Pre-Filled Syringe 1 EACH SC SCH ×2 (09:00→15:38)
[2017-09-22] MEDS: Clopidogrel Bisulfate 75 MG TAB PO SCH ×2 (09:00→15:38)
[2017-09-22] MEDS: Escitalopram Oxalate 10 mg Tablet PO SCH ×2 (09:00→15:38)
[2017-09-22] MEDS: Heparin 5,000 UNITS/ML VIAL SC SCH ×3 (09:00→19:58)
[2017-09-22] MEDS: Folic Acid/Vit B Comp W-C PO SCH ×2 (09:00→15:38)
[2017-09-22] MEDS: Amlodipine 10 MG TAB PO SCH ×2 (09:00→15:38)
--- NOTE | 2017-09-22 09:21 | PRG ---
DATE OF SERVICE: 09/22/2017 RENAL MEDICINE SUBJECTIVE: Ms. Dean is an 87-year-old white female, who was admitted for line bacteremia - enteroco ccus. Receiving IV antibiotics. In addition, patient thus had her dialysis line catheter changed. She has had dialysis this morning. I am at the bedside supervising her dialysis. PHYSICAL EXAMINATION: VITAL SIGNS: Blood pressure is 175/75, heart rate 86, respiratory rate 20, temperature 98.2, pulse o x 92%. GENERAL: Awake, alert, comfortable, not in distress. SKIN: Adequate turgor. HEENT: She has pinkish conjunctivae, anicteric sclerae. NECK: No neck mass, no carotid bruits, no JVD. CHEST: No deformities. LUNGS: Clear breath sounds. No wheezing, no crackles. HEART: Normal sinus rhythm. No murmurs, no gallops, no rubs. ABDOMEN: Globular, soft, nontender, no masses. EXTREMITIES: No edema, no deformities. MEDICATIONS: Medications of 09/22/2017 was reviewed. LABORATORY DATA: Laboratories of 09/22/2017; white count 8.6, hemoglobin 12.2. Sodium 137, [place] m 4.2, chloride 102, carbon dioxide 24, BUN 23, creatinine 4.47, glucose 107, and calcium 9.8. ASSESSMENT AND PLAN: 1. Line bacteremia - currently on IV vancomycin sliding scale. Most recent vancomycin level was not ed at 21. Plan is to continue IV antibiotics for at least 2 more weeks. Her line catheter has been changed. 2. End-stage renal disease, stable. Tolerating current hemodialysis regimen. Fluid removal only as tolerated by the patient. However possible discharge in a.m.
[2017-09-22] MEDS ORDERED: Heparin 1,000 UNITS/ML VIAL ONE (11:11)
--- NOTE | 2017-09-22 14:18 | PDOC.PN ---
- Subjective Encounter Start Date: 09/22/17 Encounter Start Time: 14:17 Subjective: Seen and examined feeling better - Objective Resuscitation Status: Resuscitation Status DNR:Do Not Resuscitate Vital Signs & Weight: Vital Signs (12 hours) Temp Pulse Resp BP Pulse Ox 09/22/17 04:00 98.2 F 86 20 175/75 H 92 L Weight Weight 172 lb 3.2 oz I&O: 09/21/17 09/22/17 09/23/17 06:59 06:59 06:59 Intake Total 240 205 Balance 240 205 Result Diagrams: 09/22/17 04:12 09/22/17 04:12 Additional Labs: Accuchecks 09/22/17 09/21/17 09/21/17 05:23 19:24 16:54 POC Glucose 96 170 H 172 H Phys Exam - Physical Examination Constitutional: NAD HEENT: PERRLA, moist MMs, sclera anicteric, TM's clear, oral pharynx no lesions Neck: no nodes, no JVD, supple, full ROM Respiratory: no wheezing, no rales, no rhonchi, clear to auscultation bilateral Cardiovascular: RRR, no significant murmur, no rub Gastrointestinal: soft, non-tender, no distention, positive bowel sounds Musculoskeletal: no edema, pulses present Dx/Plan (1) Bacteremia Code(s): R78.81 - BACTEREMIA Status: Acute (2) CAD (coronary artery disease) Code(s): I25.10 - ATHSCL HEART DISEASE OF [place] CORONARY ARTERY W/O ANG PCTRS Status: Chronic Qualifiers: Coronary Disease-Associated Artery/Lesion type: [place] artery [place] vs. transplanted heart: [place] heart Associated angina: without angina Qualified Code(s): I25.10 - Atherosclerotic heart disease of [place] coronary artery without angina pectoris (3) DM type 2 (diabetes mellitus, type 2) Status: Chronic Qualifiers: Diabetes mellitus complication status: with hyperglycemia Diabetes mellitus fci insulin use: with terminal superintendent use Qualified Code(s): E11.65 - Type 2 diabetes mellitus with hyperglycemia; Z79.4 - snf (current) use of insulin (4) ESRD (end stage renal disease) on dialysis Code(s): N18.6 - END STAGE RENAL DISEASE; Z99.2 - DEPENDENCE ON RENAL DIALYSIS Status: Chronic (5) Hypertension Code(s): I10 - ESSENTIAL (PRIMARY) HYPERTENSION Status: Chronic Qualifiers: Hypertension type: essential hypertension Qualified Code(s): I10 - Essential (primary) hypertension - Plan plan discussed w/ family, continue antibiotics, PT/OT, social work nurse Hemodialysis today -: Possible D/c in am * .
[2017-09-23] MEDS: HYDROcodone/Acetaminophen 10/325 mg Tablet PO PRN (05:33)
[2017-09-23] MEDS: Mometasone/Formoterol 120 PUFF INHALER INH SCH ×2 (07:08→11:30)
[2017-09-23 07:32] VITALS: BP 165/74; TEMP 98.6
--- NOTE | 2017-09-23 09:28 | PDOC.PN ---
- Subjective Encounter Start Date: 09/23/17 Encounter Start Time: 09:26 Subjective: Doing well - Objective Resuscitation Status: Resuscitation Status DNR:Do Not Resuscitate Vital Signs & Weight: Vital Signs (12 hours) Temp Pulse Resp BP Pulse Ox 09/23/17 07:31 98.6 F 95 16 165/74 H 95 09/23/17 04:00 98.4 F 83 18 173/78 H 94 L 09/23/17 03:23 94 L 09/23/17 00:00 98.5 F 77 18 171/74 H 91 L Weight Weight 172 lb 3.2 oz I&O: 09/22/17 09/23/17 09/24/17 06:59 06:59 06:59 Intake Total 205 1460 Balance 205 1460 Result Diagrams: 09/22/17 04:12 09/22/17 04:12 Additional Labs: Accuchecks 09/23/17 09/23/17 09/22/17 06:09 05:13 19:25 POC Glucose 133 H 43 L* 142 H 09/22/17 17:03 POC Glucose 195 H Phys Exam - Physical Examination Constitutional: NAD HEENT: PERRLA, moist MMs, sclera anicteric, TM's clear, oral pharynx no lesions Neck: no nodes, no JVD, supple, full ROM Respiratory: no wheezing, no rales, no rhonchi, clear to auscultation bilateral Cardiovascular: RRR, no significant murmur, no rub Gastrointestinal: soft, non-tender, no distention, positive bowel sounds Musculoskeletal: no edema, pulses present Dx/Plan (1) Bacteremia Code(s): R78.81 - BACTEREMIA Status: Acute (2) CAD (coronary artery disease) Code(s): I25.10 - ATHSCL HEART DISEASE OF [place] CORONARY ARTERY W/O ANG PCTRS Status: Chronic Qualifiers: Coronary Disease-Associated Artery/Lesion type: [place] artery [place] vs. transplanted heart: [place] heart Associated angina: without angina Qualified Code(s): I25.10 - Atherosclerotic heart disease of [place] coronary artery without angina pectoris (3) DM type 2 (diabetes mellitus, type 2) Status: Chronic Qualifiers: Diabetes mellitus complication status: with hyperglycemia Diabetes mellitus assisted insulin use: with terminal gauger supervisor use Qualified Code(s): E11.65 - Type 2 diabetes mellitus with hyperglycemia; Z79.4 - marine [employer] terminal superintendent (current) use of insulin (4) ESRD (end stage renal disease) on dialysis Code(s): N18.6 - END STAGE RENAL DISEASE; Z99.2 - DEPENDENCE ON RENAL DIALYSIS Status: Chronic (5) Hypertension Code(s): I10 - ESSENTIAL (PRIMARY) HYPERTENSION Status: Chronic Qualifiers: Hypertension type: essential hypertension Qualified Code(s): I10 - Essential (primary) hypertension - Plan plan discussed w/ family, continue antibiotics, PT/OT, nursing home social worker Dispo planning * .
[2017-09-23] MEDS: Sevelamer Carbonate 800 MG TAB PO SCH ×2 (09:43→15:21)
[2017-09-23] MEDS: Insulin Detemir 100 UNITS/ML 20 UNITS in Pre-Filled Syringe 1 EACH SC SCH (09:44)
[2017-09-23] MEDS: Amlodipine 10 MG TAB PO SCH (09:46)
[2017-09-23] MEDS: Folic Acid/Vit B Comp W-C PO SCH (09:46)
[2017-09-23] MEDS: Clopidogrel Bisulfate 75 MG TAB PO SCH (09:47)
[2017-09-23] MEDS: Heparin 5,000 UNITS/ML VIAL SC SCH (09:47)
[2017-09-23] MEDS: Escitalopram Oxalate 10 mg Tablet PO SCH (09:47)
--- NOTE | 2017-09-25 14:41 | DIS ---
For details of the history and physical and the consultative notes, please refer to dictations on rec ord. SUMMARY: This is an 87-year-old female patient who was sent by her truck body builder because of the posit mili blood cultures. The patient admitted and continued on IV antibiotics and dialysis was directed b y the patient's truck body builder. CONSULTANTS DURING THIS HOSPITALIZATION: Dr. Keith Covington, the truck body builder, Dr. Nichoslon also saw t his patient for access establishment, vein mapping was done to good effect left internal jugular veno us dialysis catheter was carried out by Dr. Nicholson, while the right internal jugular catheter was al so removed because of this infection. Having maintained sustained clinical improvement, decision was subsequently taken to discharge this patient on the following medications: Amlodipine 10 mg p.o. da rei, Tessalon, biotin, Symbicort 2 puff t.i.d., vitamin D3, Plavix 75 mg p.o. daily, Zyloprim 10 mg p .o. daily, Lantus insulin 20 units subcu in the morning, DuoNebs t.i.d. p.r.n., lactulose p.o. daily, Imodium q. 6 hours p.r.n., methylprednisolone 4 mg as directed, Zofran 4 mg p.o. q. 8 p.r.n., Protonix 40 mg p.o. daily, Renvela 800 mg p.o. t.i.d. with meals, tramadol 50 mg q. 6 hours p.r.n., v ancomycin 1 gram to be directed by a Nephrology. DISCHARGE INSTRUCTIONS: 1. Follow up with the Nephrology. 2. Followup with Infectious Disease. 3. Represent here in case of any relapse or deterioration in clinical condition. Total time spent including [id number] encounter 32 minutes.
== END 2017-09-23 12:16 | disposition home or self-care (01) | DRG 314 ==
LOC: ERS 18:51 → T4-A 19:45
PROVIDERS: ADMIT Internal Medicine Infectious Disease; ATTEND Internal Medicine Infectious Disease
PROC: 05PYX3Z Removal of Infusion Device from Upper Vein, External Approach (ICD-10-PCS; principal; 2017-09-20)
PROC: 02HV33Z Insertion of Infusion Device into Superior Vena Cava, Percutaneous Approach (ICD-10-PCS; 2017-09-21)
PROC: B5181ZA Fluoroscopy of Superior Vena Cava using Low Osmolar Contrast, Guidance (ICD-10-PCS; 2017-09-21)
PROC: 5A1D70Z Performance of Urinary Filtration, Intermittent, Less than 6 Hours Per Day (ICD-10-PCS; 2017-09-22)
DX: T82.7XXA Infection and inflammatory reaction due to other cardiac and vascular devices, implants and grafts, initial encounter (principal); N18.6 End stage renal disease; I12.0 Hypertensive chronic kidney disease with stage 5 chronic kidney disease or end stage renal disease; A41.81 Sepsis due to Enterococcus; E11.22 Type 2 diabetes mellitus with diabetic chronic kidney disease; L76.32 Postprocedural hematoma of skin and subcutaneous tissue following other procedure; E11.65 Type 2 diabetes mellitus with hyperglycemia; J44.9 Chronic obstructive pulmonary disease, unspecified; I25.10 Atherosclerotic heart disease of native coronary artery without angina pectoris; I25.2 Old myocardial infarction; M81.0 Age-related osteoporosis without current pathological fracture; Z85.528 Personal history of other malignant neoplasm of kidney; Z90.5 Acquired absence of kidney; Z99.2 Dependence on renal dialysis; Z66 Do not resuscitate; Z88.5 Allergy status to narcotic agent; Z79.01 Long term (current) use of anticoagulants; Z79.4 Long term (current) use of insulin; D64.9 Anemia, unspecified
CPT/HCPCS: 36415; 36416; 71045; 80048; 80053; 80170; 80202; 83605; 85025; 90471; 90682; 90935; 93970; C1752; C1769; G0008; G0257; G0365; J1580; J1644; J1815; J2001; J2270; J2704; J3010; J3370; J7050; Q2036; S0020